=== PATIENT | male | born 1950 | race Caucasian/White ===

== ENCOUNTER 2016-12-12 13:37 | Outpatient (CLI) | payer MEDICARE, MEDICAID | END 2016-12-12 13:38 | disposition critical access hospital (66) | LOC: EMS 13:37 | PROVIDERS: ATTEND Surgery | DX: S01.112A Laceration without foreign body of left eyelid and periocular area, initial encounter (principal); W22.8XXA Striking against or struck by other objects, initial encounter; W19.XXXA Unspecified fall, initial encounter; Y92.039 Unspecified place in apartment as the place of occurrence of the external cause | CPT/HCPCS: A0425; A0429 ==

== ENCOUNTER 2016-12-12 13:59 | Emergency (ER) | payer MEDICARE, MEDICAID ==
[2016-12-12] MEDS ORDERED: BUPIVACAINE 0.5%-EPI 1:200000 PF 10 ML VIAL SUBQ STA (14:16)
[2016-12-12] MEDS ORDERED: BUPIVACAINE 0.5%-EPI 1:200000 PF 30 ML VIAL ONE (14:17)
--- NOTE | 2016-12-12 14:28 | ED Physician Documentation ---
PD HPI HEAD INJURY - Stated complaint Stated Complaint: GLF - Chief complaint Chief Complaint: Laceration - History obtained from History obtained from: Patient, EMS - History of Present Illness Mechanism of head injury: Fell Where head injury occurred: Home Timing - onset: How many hours ago (1) Pain level max: 7 Pain level now: 6 Location of injury: Other (L eyebrow) Associated symptoms: Neck pain, Other (+headache). No: LOC, AMS, Amnesia, Nausea / vomiting, Paresthesias, Seizures, Ear drainage, Nasal drainage Symptoms improve with: Nothing Symptoms worsen with: Other (nothing) Contributing factors: No: Anticoagulated Recently seen: Not recently seen - Additional information Additional information: pt is a hemodialysis pt. Fell getting into his wheelchair. No LOC. Now has headache. No neuro deficits. Pt is chronically hypotensive. Review of Systems Constitutional: denies: Fever, Chills Respiratory: denies: Cough GI: denies: Abdominal Pain, Vomiting Skin: denies: Rash Musculoskeletal: reports: Neck pain (mid c-spine) Neurologic: reports: Head injury. denies: Focal weakness, Numbness PD PAST MEDICAL HISTORY - Past Medical History Past Medical History: Yes Cardiovascular: Atrial fibrillation, Hypertension Respiratory: None Neuro: Peripheral neuropathy Endocrine/Autoimmune: None GI: Pancreatitis, Colon polyps : Renal insuffiency HEENT: None Psych: None Musculoskeletal: Gout Derm: None - Past Surgical History Past Surgical History: No - Present Medications Home Medications: Ambulatory Orders Medication Instructions Recorded Confirmed Metoprolol Succinate 150 mg PO DAILY 05/19/14 09/15/14 Aspirin [Adult Low Dose Aspirin EC] 81 mg PO DAILY 12/12/16 12/12/16 Folic Acid 0 mg PO DAILY 12/12/16 12/12/16 - Allergies Allergies/Adverse Reactions: Allergies Allergy/AdvReac Type Severity Reaction Status Date / Time rosuvastatin calcium * Allergy Unknown Unknown Verified 12/12/16 14:13 [From Crestor] - Social History Does the pt smoke?: No Smoking Status: Former smoker Does the pt drink ETOH?: Yes Does the pt have substance abuse?: No - Immunizations Immunizations are current?: No Immunizations: TDAP >10years/unknown - POLST Patient has POLST: No PD ED PE NORMAL - Vitals Vital signs reviewed: Yes - General General: Alert and oriented X 3, No acute distress - HEENT HEENT: PERRL, EOMI, Ears normal, Moist mucous membranes, Other (3cm, linear, deep laceartion L eyebrow) - Neck Neck: Supple, no meningeal sign, Other (mild mid c-spine TTP. no stepoff or deformity.) - Cardiac Cardiac: RRR - Respiratory Respiratory: No respiratory distress, Clear bilaterally - Abdomen Abdomen: Soft, Non tender - Back Back: No spinal TTP - Derm Derm: Warm and dry - Extremities Extremities: No tenderness to palpate - Neuro Neuro: Alert and oriented X 3 - Psych Psych: Normal mood, Normal affect Results - Vitals Vitals: Vital Signs - 24 hr 12/12/16 12/12/16 14:00 16:53 Temperature 36.3 C L Heart Rate 99 108 H Respiratory 18 16 Rate Blood Pressure 89/61 L 88/60 L O2 Saturation 99 97 Oxygen O2 Source Room air - Rads (name of study) head CT Radiology: Prelim report reviewed, EMP read contemporaneously, See rad report ( Negative head CT for acute findings or significant interval change since 2015) cervical spine cT Radiology: Prelim report reviewed, EMP read contemporaneously, See rad report ( Stable degenerative changes of the cervical spine without superimposed acute findings when compared with 06/12/2016. ) Procedures - Laceration (location) L eyebrow Length in cm: 3 Wound type: Linear, Into subcut fat, Clean Neurovascular status: Sensory intact, Motor intact, Vascular intact Anesthesia: Marcaine 0.5% with epi Wound Preparation: Irrigated copiously NS, Wound explored, To the base. No: FB identified, FB removed Skin layer closure: Nylon, Size #-0 - enter number (4) Other: Patient tolerated well, No complications, Neurovascular intact, Dressing applied, Tetanus UTD Complexity: Simple PD MEDICAL DECISION MAKING - ED course Complexity details: reviewed results, re-evaluated patient, considered differential, d/w patient ED course: Patient is a 66-year-old male who tripped and fell getting into his wheelchair today and sustained a laceration of left eyebrow. This was repaired. Tolerated well. Warnings of infection and instructions on wound care given at bedside. Also counseled on how to minimize scarring. No acute findings on head CT or cervical spine CT. We will have him follow-up with his doctor for suture removal and repeat evaluation. Patient counseled regarding signs and symptoms for which I believe and urgent re-evaluation would be necessary. Patient with good understanding of and agreement to plan and is comfortable going home at this time This document was made in part using voice recognition software. While efforts are made to proofread this document, sound alike and grammatical errors may occur. Patient is chronically hypotensive and this blood pressure is normal for him Departure - Departure Disposition: 01 Home, Self Care Clinical Impression: Facial laceration Qualifiers: Encounter type: initial encounter Qualified Code(s): S01.81XA - Laceration without foreign body of other part of head, initial encounter Condition: Good Instructions: ED Laceration Facial Sutr Tape Follow-Up: Frederic Lane MD [Primary Care Provider] - Within 1 week Comments: Return if you worsen. The stitches should be removed in 7-10 days with your doctor. Discharge Date/Time: 12/12/16 16:53
--- NOTE | 2016-12-12 15:41 | CT Preliminary Report ---
Exam: CT Head W/O IMPRESSION: Negative head CT for acute findings or significant interval change since 06/12/2016. [facility] SITE ID: [id number]
--- NOTE | 2016-12-12 15:44 | CT Report ---
EXAM: CT HEAD EXAM DATE: 12/12/2016 03:28 PM. CLINICAL HISTORY: Fall, head injury. COMPARISON: 06/12/[address] TECHNIQUE: Multiaxial CT images were obtained from the foramen magnum to the vertex. IV contrast: Non e. Reformats: Coronal. In accordance with CT protocol optimization, one or more of the following dose reduction techniques w ere utilized for this exam: automated exposure control, adjustment of mA and/or KV based on patient s ize, or use of iterative reconstructive technique. FINDINGS: Parenchyma: No intraparenchymal hemorrhage. No evidence of mass, midline shift, or CT findings of acu te infarction. Land-white differentiation is distinct. Early periventricular microangiopathic vascula r changes are present. Extraaxial Spaces: Normal for age. No subdural or epidural collections identified. Ventricles: Normal in size and position. Sinuses: Imaged paranasal sinuses, orbits, and mastoids show no significant abnormality. Bones: No evidence of fracture or calvarial defect. Other: None. IMPRESSION: Negative head CT for acute findings or significant interval change since 06/12/2016. [facility] Referring Provider Line: [phone] SITE ID: [id number]
--- NOTE | 2016-12-12 15:49 | CT Preliminary Report ---
Exam: CT Cervical Spine W/O IMPRESSION: Stable degenerative changes of the cervical spine without superimposed acute findings whe n compared with 06/12/2016. [facility] SITE ID: [id number]
--- NOTE | 2016-12-12 15:52 | CT Report ---
EXAM: CT CERVICAL SPINE WITHOUT CONTRAST DATE: 12/12/2016 03:28 PM HISTORY: Fall, neck pain. COMPARISONS: 06/12/2016. TECHNIQUE: Thin-section axial images were acquired of the cervical spine without contrast. Post-proce ssing: Coronal and sagittal reformats. Other: None. In accordance with CT protocol optimization, one or more of the following dose reduction techniques w ere utilized for this exam: automated exposure control, adjustment of mA and/or KV based on patient s ize, or use of iterative reconstructive technique. FINDINGS: Stable height and alignment of the cervical vertebral bodies compared with 06/12/2016. Dege nerative disk space narrowing most marked C5-C6 and C6-C7 with prominent anterior vertebral body spur ring C4-C7, most marked C4-C5 as before. Scattered facet joint degenerative changes with grossly cortes nt neural foramina stable. No acute fracture, acute malalignment or prevertebral soft tissue swelling . A cystic anterior midline mass at the level of the thyroid isthmus measuring 2.5 x 2.2 cm is stable . No significant new findings are seen. IMPRESSION: Stable degenerative changes of the cervical spine without superimposed acute findings whe n compared with 06/12/2016. [facility] Referring Provider Line: [phone] SITE ID: [id number]
[2016-12-12 16:55] VITALS: BP 88/60
== END 2016-12-12 16:53 | disposition home or self-care (01) ==
LOC: EDUNIT# → ED 13:59
DX: S01.112A Laceration without foreign body of left eyelid and periocular area, initial encounter (principal); M54.2 Cervicalgia; R51 Headache; W01.10XA Fall on same level from slipping, tripping and stumbling with subsequent striking against unspecified object, initial encounter; Y93.89 Activity, other specified; Y92.009 Unspecified place in unspecified non-institutional (private) residence as the place of occurrence of the external cause; I95.89 Other hypotension; Z99.2 Dependence on renal dialysis; I10 Essential (primary) hypertension; I48.91 Unspecified atrial fibrillation; Z79.82 Long term (current) use of aspirin; Z87.891 Personal history of nicotine dependence
CPT/HCPCS: 12013; 70450; 72125; 99283

== ENCOUNTER 2016-12-24 11:00 | Outpatient (CLI) | payer MEDICARE, MEDICAID | END 2016-12-24 11:01 | disposition short-term general hospital (02) | LOC: EMS 11:00 | PROVIDERS: ATTEND Surgery | DX: S09.93XA Unspecified injury of face, initial encounter (principal); W17.89XA Other fall from one level to another, initial encounter; Y92.038 Other place in apartment as the place of occurrence of the external cause | CPT/HCPCS: A0425; A0427; A0888 ==

== ENCOUNTER 2017-01-05 18:18 | Outpatient (CLI) | payer MEDICARE, MEDICAID | END 2017-01-05 18:19 | disposition critical access hospital (66) | LOC: EMS 18:18 | PROVIDERS: ATTEND Surgery | DX: R55 Syncope and collapse (principal); R53.1 Weakness; E16.2 Hypoglycemia, unspecified | CPT/HCPCS: A0425; A0429 ==

== ENCOUNTER 2017-01-05 18:38 | Emergency (ER) | payer MEDICARE, MEDICAID ==
[2017-01-05] MEDS ORDERED: SODIUM CHLORIDE 0.9% 500 ML IV ONE (19:06)
[2017-01-05 19:14] LABS: EOSINOPHILS % (AUTO) 1.6 %; HCT - HEMATOCRIT 27.3 % (42.0-52.0); HGB - HEMOGLOBIN 9.3 g/dL (14.0-18.0); LYMPHOCYTES % (AUTO) 19.4 %; MEAN CORPUSCULAR HEMOGLOBIN 35.4 pg (27.0-31.0); MEAN CORPUSCULAR HGB CONC 34.3 g/dL (32.0-36.0); MEAN CORPUSCULAR VOLUME 103.3 fL (80.0-94.0); MEAN PLATELET VOLUME 7.4 fL (7.4-11.4); MONOCYTES % (AUTO) 9.3 %; NEUTROPHILS % (AUTO) 68.7 %; RED BLOOD COUNT 2.64 10^6/uL (4.70-6.10); RED CELL DISTRIBUTION WIDTH 15.3 % (12.0-15.0); UNCORRECTED WHITE BLOOD COUNT 2.6 x10^3/uL; WHITE BLOOD COUNT 2.6 x10^3/uL (4.8-10.8)
[2017-01-05 19:25] LABS: ALBUMIN/GLOBULIN RATIO 0.9 (1.0-2.2); BILIRUBIN,TOTAL 0.7 mg/dL (0.2-1.0); CALCIUM 8.4 mg/dL (8.5-10.3); CREATININE 6.1 mg/dL (0.6-1.2); POTASSIUM 4.2 mmol/L (3.5-5.0); TOTAL PROTEIN 6.9 g/dL (6.7-8.2)
[2017-01-05] MEDS ORDERED: diltiaZEM INJ 5 MG/ML VIAL IVP STA (19:40)
--- NOTE | 2017-01-05 19:44 | ED Physician Documentation ---
PD HPI SYNCOPE - Stated complaint Stated Complaint: SYNCOPE - Chief complaint Chief Complaint: General - History obtained from History obtained from: Patient, EMS - History of Present Illness Witnessed: Witnessed Timing - onset: Today Duration: Minutes (1) Preceding symptoms: None Associated symptoms: No: Seizure, Incontinant of urine, Incontinant of stool, Headache, Chest pain, Palpitations, Diaphoresis, Dyspnea, Nausea / vomiting, Abdominal pain Injury occurred: No: Fell, Head injury, Neck injury, Bit tongue Pain level max: 0 Pain level now: 0 Similar symptoms before: Diagnosis (syncope) - Additional information Additional information: was having dialysis when he had a syncopal event. Review of Systems Constitutional: denies: Fever, Chills Ears: denies: Ear pain Nose: denies: Rhinorrhea / runny nose, Congestion Throat: denies: Sore throat Cardiac: denies: Chest pain / pressure Respiratory: denies: Cough GI: denies: Abdominal Pain, Nausea, Vomiting, Diarrhea : denies: Dysuria Skin: denies: Rash Musculoskeletal: denies: Neck pain, Back pain Neurologic: denies: Focal weakness, Numbness, Seizure, Confused, Altered mental status, Headache PD PAST MEDICAL HISTORY - Past Medical History Past Medical History: Yes Cardiovascular: Atrial fibrillation, Hypertension Respiratory: None Neuro: Peripheral neuropathy Endocrine/Autoimmune: None GI: Pancreatitis, Colon polyps : Renal insuffiency HEENT: None Psych: None Musculoskeletal: Gout Derm: None Other Past Medical History: dialysis - Past Surgical History Past Surgical History: No - Present Medications Home Medications: Ambulatory Orders Medication Instructions Recorded Confirmed Metoprolol Succinate 150 mg PO DAILY 05/19/14 09/15/14 Aspirin [Adult Low Dose Aspirin EC] 81 mg PO DAILY 12/12/16 12/12/16 Folic Acid 0 mg PO DAILY 12/12/16 12/12/16 - Allergies Allergies/Adverse Reactions: Allergies Allergy/AdvReac Type Severity Reaction Status Date / Time rosuvastatin calcium * Allergy Unknown Unknown Verified 12/12/16 14:13 [From Anita] - Social History Does the pt smoke?: No Smoking Status: Former smoker Does the pt drink ETOH?: Yes Does the pt have substance abuse?: No - Immunizations Immunizations are current?: No Immunizations: TDAP >10years/unknown - POLST Patient has POLST: No PD ED PE NORMAL - Vitals Vital signs reviewed: Yes - General General: Alert and oriented X 3, No acute distress, Well developed/nourished - HEENT HEENT: Atraumatic, PERRL, Moist mucous membranes - Neck Neck: Supple, no meningeal sign, No bony TTP - Cardiac Cardiac: Strong equal pulses, Other (irregular tachycardia) - Respiratory Respiratory: No respiratory distress, Clear bilaterally - Abdomen Abdomen: Soft, Non tender - Back Back: No spinal TTP - Derm Derm: Warm and dry, No rash - Extremities Extremities: No edema, No calf tenderness / cord - Neuro Neuro: Alert and oriented X 3 - Psych Psych: Normal mood, Normal affect Results - Vitals Vitals: Oxygen O2 Source Room air - EKG (time done) 1920 Rate: Rate (enter#) (132) Rhythm: Atrial fibrillation [place]: Normal Ischemia: Normal ST segments - Labs Labs: Laboratory Tests 01/05/17 01/05/17 01/05/17 18:54 18:54 18:54 WBC 2.6 L RBC 2.64 L Hgb 9.3 L Hct 27.3 L MCV 103.3 H MCH 35.4 H MCHC 34.3 RDW 15.3 H Plt Count 173 MPV 7.4 Neut # Not Reportable Lymph # Not Reportable [place] # Not Reportable Eos # Not Reportable Baso # Not Reportable Absolute Nucleated RBC Not Reportable Total Counted 100 Band Neuts % (Manual) 5 Neutrophils # (Manual) 1.8 Lymphocytes # (Manual) 0.6 L Monocytes # (Manual) 0.2 Eosinophils # (Manual) 0.0 Nucleated RBCs Not Reportable Differential Comment MANUAL DIFFERENTIAL Platelet Estimate NORMAL (130-450,000) Platelet Morphology NORMAL APPEARANCE RBC Morph Micro Appear NORMAL APPEARANCE Sodium 137 Potassium 4.2 Chloride 92 L Carbon Dioxide 30 Anion Gap 15.0 H BUN 38 H Creatinine 6.1 H Estimated GFR (MDRD) 9 L Glucose 77 POC Whole Bld Glucose Calcium 8.4 L Total Bilirubin 0.7 AST 14 ALT 12 Alkaline Phosphatase 86 Total Protein 6.9 Albumin 3.2 Globulin 3.7 Albumin/Globulin Ratio 0.9 L Lipase 14 L Ethyl Alcohol 27.5 01/05/17 01/05/17 19:05 19:53 WBC RBC Hgb Hct MCV MCH MCHC RDW Plt Count MPV Neut # Lymph # [place] # Eos # Baso # Absolute Nucleated RBC Total Counted Band Neuts % (Manual) Neutrophils # (Manual) Lymphocytes # (Manual) Monocytes # (Manual) Eosinophils # (Manual) Nucleated RBCs Differential Comment Platelet Estimate Platelet Morphology RBC Morph Micro Appear Sodium Potassium Chloride Carbon Dioxide Anion Gap BUN Creatinine Estimated GFR (MDRD) Glucose POC Whole Bld Glucose 76 77 Calcium Total Bilirubin AST ALT Alkaline Phosphatase Total Protein Albumin Globulin Albumin/Globulin Ratio Lipase Ethyl Alcohol PD MEDICAL DECISION MAKING - ED course Complexity details: reviewed old records, reviewed results, re-evaluated patient , considered differential, d/w patient ED course: Patient is a 66-year-old male who is on dialysis. Had a syncopal event during dialysis today. This is not too unusual for him. Has been seen here previously for similar. He was found to be in atrial fibrillation with rapid ventricular response. He did not take any of his medications today. Given his normal medications here and his heart rate decreased to approximately 99-105. He states his normal heart rate is about 110-120. He was in atrial fibrillation still. No focal neurological deficits. No acute laboratory issues. He does not want to be observed in the hospital. Patient counseled regarding signs and symptoms for which I believe and urgent re-evaluation would be necessary. Patient with good understanding of and agreement to plan and is comfortable going home at this time This document was made in part using voice recognition software. While efforts are made to proofread this document, sound alike and grammatical errors may occur. Departure - Departure Disposition: 01 Home, Self Care Clinical Impression: Atrial fibrillation with RVR Syncope Qualifiers: Syncope type: unspecified Qualified Code(s): R55 - Syncope and collapse Condition: Good Instructions: ED Afib, ED Fainting Unkn Cause Follow-Up: your,doctor in 3 days [Other] Comments: Return if you worsen. You need to take your medications at home as prescribed. Discharge Date/Time: 01/05/17 23:20
[2017-01-05] MEDS ORDERED: diltiaZEM INJ 5 MG/ML VIAL ONE (19:57)
[2017-01-05 20:18] LABS: BAND NEUTROPHILS % (MANUAL) 5 %; EOSINOPHILS % (MANUAL) 1 %; LYMPHOCYTES % (MANUAL) 23 %; NEUTROPHILS % (MANUAL) 64 %; TOTAL CELLS COUNTED 100
[2017-01-05 20:19] LABS: NP AUTO DIFFERENTIAL? YES; NP MAN DIFFERENTIAL? NO; PLATELET ESTIMATE, MANUAL NORMAL (130-450,000) (NORMAL); PLATELET MORPHOLOGY NORMAL APPEARANCE (NORMAL)
[2017-01-05] MEDS ORDERED: METOPROLOL TARTRATE 50 MG TABLET PO STA (20:49)
[2017-01-05] MEDS ORDERED: METOPROLOL 5 MG/5 ML VIAL IVP STA ×3 (20:49→22:35)
[2017-01-05] MEDS ORDERED: METOPROLOL TARTRATE 50 MG TABLET ONE (20:54)
[2017-01-05] MEDS ORDERED: METOPROLOL 5 MG/5 ML VIAL IVP ONE ×3 (20:54→22:41)
[2017-01-05 23:15] VITALS: BP 110/73
== END 2017-01-05 23:20 | disposition home or self-care (01) ==
LOC: EDUNIT# → EDSEX → ED 18:38
DX: I48.91 Unspecified atrial fibrillation (principal); R55 Syncope and collapse; I45.81 Long QT syndrome; I10 Essential (primary) hypertension; N28.9 Disorder of kidney and ureter, unspecified; G62.9 Polyneuropathy, unspecified; Z99.2 Dependence on renal dialysis; Z79.82 Long term (current) use of aspirin; Z87.891 Personal history of nicotine dependence
CPT/HCPCS: 36415; 80053; 83690; 85025; 93005; 96374; 96375; 96376; 99285; A9270; G0480; 80320

== ENCOUNTER 2017-01-14 13:29 | Outpatient (CLI) | payer MEDICARE, MEDICAID | END 2017-01-14 13:30 | disposition short-term general hospital (02) | DX: R46.4 Slowness and poor responsiveness (principal); R47.81 Slurred speech; M25.561 Pain in right knee; R03.1 Nonspecific low blood-pressure reading; W05.0XXA Fall from non-moving wheelchair, initial encounter | CPT/HCPCS: A0425; A0427 ==

== ENCOUNTER 2017-07-22 15:34 | Outpatient (CLI) | payer MEDICARE, MEDICAID | END 2017-07-22 15:35 | disposition critical access hospital (66) | LOC: EMS 15:34 | PROVIDERS: ATTEND Surgery | DX: R56.9 Unspecified convulsions (principal) | CPT/HCPCS: A0425; A0429 ==

== ENCOUNTER 2017-07-22 15:56 | Emergency (ER) | payer MEDICARE, MEDICAID ==
[2017-07-22 16:33] LABS: BASOPHILS % (AUTO) 0.8 %; EOSINOPHILS # (AUTO) 0.1 10^3/uL (0.0-0.7); EOSINOPHILS % (AUTO) 2.2 %; LYMPHOCYTES # (AUTO) 0.4 10^3/uL (1.5-3.5); LYMPHOCYTES % (AUTO) 9.8 %; MEAN CORPUSCULAR HEMOGLOBIN 31.5 pg (27.0-31.0); MEAN CORPUSCULAR HGB CONC 32.4 g/dL (32.0-36.0); MEAN CORPUSCULAR VOLUME 97.4 fL (80.0-94.0); MEAN PLATELET VOLUME 6.3 fL (7.4-11.4); MONOCYTES # (AUTO) 0.5 10^3/uL (0.0-1.0); MONOCYTES % (AUTO) 10.8 %; NEUTROPHILS # (AUTO) 3.3 10^3/uL (1.5-6.6); NEUTROPHILS % (AUTO) 76.4 %; PLT - PLATELET COUNT 246 10^3/uL (130-450); RED BLOOD COUNT 3.17 10^6/uL (4.70-6.10); RED CELL DISTRIBUTION WIDTH 16.3 % (12.0-15.0); WHITE BLOOD COUNT 4.3 x10^3/uL (4.8-10.8)
--- NOTE | 2017-07-22 16:37 | ED Physician Documentation ---
PD HPI SEIZURE - Stated complaint Stated Complaint: SZ - Chief complaint Chief Complaint: Neuro - History obtained from History obtained from: Patient, EMS - History of Present Illness Timing - onset: Today Witnessed: Witnessed Number of seizures: Single, Lasted minutes (1) Description of seizure activity: Generalized, Tonic Injury during seizure: Head injury, Neck injury (states head and neck pain, no fall). No: Fell, Bit tongue, Shoulder dislocation Pain level max: 4 Pain level now: 4 Associated symptoms: Headache History of seizures: First seizure Contributing factors: Other (during dialysis today. States passes out regularly , but has never had seizures. States hit his head 2 weeks ago when he fell at home) Similar symptoms before: Has not had sx before Recently seen: Not recently seen Review of Systems Ten Systems: 10 systems reviewed and negative Constitutional: denies: Fever, Chills Ears: denies: Ear pain Nose: denies: Rhinorrhea / runny nose, Congestion Throat: denies: Sore throat Cardiac: denies: Chest pain / pressure Respiratory: denies: Cough GI: denies: Abdominal Pain, Nausea, Vomiting, Diarrhea Skin: denies: Rash Musculoskeletal: denies: Back pain Neurologic: denies: Focal weakness, Numbness, Confused, Altered mental status PD PAST MEDICAL HISTORY - Past Medical History Cardiovascular: Atrial fibrillation, Hypertension Respiratory: None Neuro: Peripheral neuropathy Endocrine/Autoimmune: None GI: Pancreatitis, Colon polyps : Renal insuffiency HEENT: None Psych: None Musculoskeletal: Gout Derm: None - Past Surgical History Past Surgical History: No - Present Medications Home Medications: Ambulatory Orders Medication Instructions Recorded Confirmed Metoprolol Succinate 150 mg PO DAILY 05/19/14 07/22/17 - Allergies Allergies/Adverse Reactions: Allergies Allergy/AdvReac Type Severity Reaction Status Date / Time rosuvastatin calcium * Allergy Unknown Unknown Verified 07/22/17 16:03 [From Crestor] enoxaparin [From Lovenox] Allergy Unknown Verified 07/22/17 16:05 - Social History Does the pt smoke?: No Smoking Status: Never smoker Does the pt drink ETOH?: Yes Does the pt have substance abuse?: No - Immunizations Immunizations are current?: No Immunizations: TDAP >10years/unknown - POLST Patient has POLST: No PD ED PE NORMAL - Vitals Vital signs reviewed: Yes - General General: Alert and oriented X 3, No acute distress, Well developed/nourished - HEENT HEENT: Atraumatic, PERRL, EOMI, Ears normal, Moist mucous membranes - Neck Neck: Supple, no meningeal sign, Other (mild mid c-spine TTP) - Cardiac Cardiac: RRR, Strong equal pulses - Respiratory Respiratory: No respiratory distress, Clear bilaterally - Abdomen Abdomen: Soft, Non tender, Non distended - Back Back: No spinal TTP - Derm Derm: Warm and dry - Extremities Extremities: No deformity, Normal ROM s pain - Neuro Neuro: Alert and oriented X 3, fire adjuster 2-12 intact, No motor deficit, No sensory deficit, Normal speech - Psych Psych: Normal mood, Normal affect Results - Vitals Vitals: Vital Signs - 24 hr 07/22/17 07/22/17 15:59 19:23 Temperature 36.5 C Heart Rate 99 109 H Respiratory 16 18 Rate Blood Pressure 127/73 128/75 O2 Saturation 99 96 Oxygen O2 Source Room air - EKG (time done) 1648 Rate: Rate (enter#) (103) Rhythm: Atrial fibrillation [place]: Normal QRS: Normal Ischemia: Normal ST segments - Labs Labs: Laboratory Tests 07/22/17 07/22/17 16:27 16:27 WBC 4.3 L RBC 3.17 L Hgb 10.0 L Hct 30.9 L MCV 97.4 H MCH 31.5 H MCHC 32.4 RDW 16.3 H Plt Count 246 MPV 6.3 L Neut # 3.3 Lymph # 0.4 L [place] # 0.5 Eos # 0.1 Baso # 0.0 Absolute Nucleated RBC 0.00 Nucleated RBC % 0.1 Sodium 136 Potassium 3.5 Chloride 93 L Carbon Dioxide 24 Anion Gap 19.0 H BUN 19 Creatinine 4.2 H Estimated GFR (MDRD) 14 L Glucose 111 H Calcium 9.5 Total Bilirubin 0.5 AST 14 ALT 10 Alkaline Phosphatase 112 Total Protein 8.3 H Albumin 3.5 Globulin 4.8 H Albumin/Globulin Ratio 0.7 L Lipase 21 L Salicylates < 6.0 Acetaminophen < 10 L Ethyl Alcohol < 5.0 - Rads (name of study) CT head Radiology: Prelim report reviewed, EMP read contemporaneously, See rad report ( Generalized age-related cortical atrophic changes without evidence of acute intracranial abnormality) CT c-spine Radiology: Prelim report reviewed, EMP read contemporaneously, See rad report ( Acute hairline fracture involving the base of the left C6 inferior articulating facet. Extensive diffuse idiopathic skeletal hyperostosis with ankylosis throughout the majority anterior bony column of the cervical spine. Synovitis left C3-C4 facet. ) PD MEDICAL DECISION MAKING - ED course Complexity details: reviewed results, re-evaluated patient, considered differential, d/w patient, d/w business solutions consultant (Dr. Godwin ([facility] [place] [facility] ED course: Patient is a 66-year-old male who presents to the emergency department what sounds like an new onset of a seizure today, has never had seizures in the past. No acute findings on laboratory testing, head CT. Cervical spine CT shows a hairline fracture of the C6 facet. Discussed the case with [facility] spine who also reviewed the images and states that this does not require any treatment. He states the patient can wear a collar if the patient likes but does not need to as this will heal on its own. Patient does not want a collar. Patient will follow up with his doctor for further evaluation and care. He does not drive. Patient counseled regarding signs and symptoms for which I believe and urgent re-evaluation would be necessary. Patient with good understanding of and agreement to plan and is comfortable going home at this time This document was made in part using voice recognition software. While efforts are made to proofread this document, sound alike and grammatical errors may occur. Departure - Departure Disposition: 01 Home, Self Care Clinical Impression: Seizure Fx C6 vertebra-closed Qualifiers: Encounter type: initial encounter Fracture morphology: other fracture Fracture alignment: nondisplaced Qualified Code(s): S12.591A - Other nondisplaced fracture of sixth cervical vertebra, initial encounter for closed fracture Condition: Good Instructions: ED Fx Comp Vertebral Follow-Up: Frederic Lane MD [Primary Care Provider] - Within 1 week Comments: Return if you worsen. Follow up with your doctor. This fracture is stable and will heal on it's own. Discharge Date/Time: 07/22/17 19:45
[2017-07-22 16:47] LABS: ALBUMIN 3.5 g/dL (3.2-5.5); ALBUMIN/GLOBULIN RATIO 0.7 (1.0-2.2); ALKALINE PHOSPHATASE 112 IU/L (42-121); ALT ALANINE AMINOTRANSFERASE 10 IU/L (10-60); AST ASPARTATE AMINOTRANSFERASE 14 IU/L (10-42); BILIRUBIN,TOTAL 0.5 mg/dL (0.2-1.0); BUN - BLOOD UREA NITROGEN 19 mg/dL (6-20); CALCIUM 9.5 mg/dL (8.5-10.3); CARBON DIOXIDE - CO2 24 mmol/L (21-32); CHLORIDE 93 mmol/L (101-111); CREATININE 4.2 mg/dL (0.6-1.2); GFR - MDRD 14 (>89); GLUCOSE 111 mg/dL (70-100); LIPASE 21 U/L (22-51); SALICYLATE < 6.0 mg/dL; SODIUM 136 mmol/L (135-145); TOTAL PROTEIN 8.3 g/dL (6.7-8.2)
[2017-07-22 16:48] LABS: ACETAMINOPHEN < 10 ug/mL (10-30)
--- NOTE | 2017-07-22 17:15 | CT Preliminary Report ---
Exam: CT HEAD W/O IMPRESSION: Generalized age-related cortical atrophic changes without evidence of acute intracranial abnormality. [facility] SITE ID: [id number]
--- NOTE | 2017-07-22 17:28 | CT Preliminary Report ---
Exam: CT CERVICAL SPINE W/O IMPRESSION: 1. Acute hairline fracture involving the base of the left C6 inferior articular facet. 2. Extensive diffuse idiopathic skeletal hyperostosis with ankylosis throughout the majority of the c ervical spine. 3. Synovitis left C3-C4 facet. [facility] The above critical findings were discussed with Dr Tomlin by Dr. Judy Mtz at 17:27 hrs on 04/29. SITE ID: [id number]
--- NOTE | 2017-07-22 17:30 | CT Report ---
EXAM: CT HEAD EXAM DATE: 07/22/2017 04:39 PM. CLINICAL HISTORY: Seizure during dialysis. Patient presents with headache and neck pain since then. COMPARISON: Head CT 12/12/2016. Head MRI 01/18/2013. TECHNIQUE: Multiaxial CT images were obtained from the foramen magnum to the vertex. Reformats: Coron al. IV contrast: None. In accordance with CT protocol optimization, one or more of the following dose reduction techniques w ere utilized for this exam: automated exposure control, adjustment of mA and/or KV based on patient s ize, or use of iterative reconstructive technique. FINDINGS: Parenchyma: No intraparenchymal hemorrhage. No evidence of mass, midline shift, or CT findings of acu te infarction. Land-white differentiation is distinct. Diffuse chronic microangiopathic white matter changes are evident. Extraaxial Spaces: Normal for age. No subdural or epidural collections identified. Ventricles: The ventricles and cortical sulci are enlarged, consistent with age-related tissue loss. Sinuses and orbits: Imaged paranasal sinuses, orbits, and mastoids show no significant abnormality. Bones: No evidence of fracture or calvarial defect. Other: None. IMPRESSION: Generalized age-related cortical atrophic changes without evidence of acute intracranial abnormality. [facility] Referring Provider Line: [phone] SITE ID: [id number]
--- NOTE | 2017-07-22 17:37 | CT Report ---
EXAM: CT CERVICAL SPINE WITHOUT CONTRAST DATE: 07/22/2017 05:05 PM. HISTORY: Seizure during dialysis. Subsequent neck pain and headache. COMPARISONS: 12/12/2016. TECHNIQUE: Thin-section axial images were acquired of the cervical spine without contrast. Post-proce ssing: Coronal and sagittal reformats. Other: None. In accordance with CT protocol optimization, one or more of the following dose reduction techniques w ere utilized for this exam: automated exposure control, adjustment of mA and/or KV based on patient s ize, or use of iterative reconstructive technique. FINDINGS: Alignment: No scoliosis or spondylolisthesis. Bones: New hairline fracture extending through the left C6 inferior articulating facet from the base to the inferior most aspect, axial image 50, sagittal image 27. The rest of the trabecular and cortical patterns are intact. Old mild anterior wedging C7 and T1. Interspace Levels/Facets: Fusion of the right C3-C4 facet. Erosive changes left C3-C4 facet. Extensive diffuse idiopathic skeletal hyperostosis such that there is essentially ankylosis primarily involving the anterior bony column from C3 to T1. Multilevel moderate and marked degenerative changes. No central spinal canal compromise. Multilevel marked bony neural foraminal compromise. Musculature: Normal. No fatty atrophy. Other: The paravertebral and prevertebral soft tissues are unremarkable. The lung apices are clear. IMPRESSION: 1. Acute hairline fracture involving the base of the left C6 inferior articulating facet. 2. Extensive diffuse idiopathic skeletal hyperostosis with ankylosis throughout the majority anterior bony column of the cervical spine. 3. Synovitis left C3-C4 facet. RADIA The above critical findings were discussed with Dr Tomlin by Dr. Judy Mtz at 17:27 hrs on 04/29. Referring Provider Line: [phone] SITE ID: [id number]
[2017-07-22 19:23] VITALS: BP 128/75
== END 2017-07-22 19:45 | disposition home or self-care (01) ==
LOC: EDUNIT# → ED 15:56
DX: R56.9 Unspecified convulsions (principal); S12.591A Other nondisplaced fracture of sixth cervical vertebra, initial encounter for closed fracture; X58.XXXA Exposure to other specified factors, initial encounter; I48.91 Unspecified atrial fibrillation; I10 Essential (primary) hypertension; Z99.2 Dependence on renal dialysis
CPT/HCPCS: 36415; 70450; 72125; 80053; 80307; 83690; 85025; 93005; 99283; 99284; G0480; 80320; 80329

== ENCOUNTER 2017-10-26 12:49 | Outpatient (CLI) | payer MEDICARE, MEDICAID | END 2017-10-26 12:50 | disposition short-term general hospital (02) | LOC: EMS 12:49 | PROVIDERS: ATTEND Surgery | DX: S01.111A Laceration without foreign body of right eyelid and periocular area, initial encounter (principal); M54.9 Dorsalgia, unspecified; W18.30XA Fall on same level, unspecified, initial encounter; Y92.039 Unspecified place in apartment as the place of occurrence of the external cause | CPT/HCPCS: A0425; A0429 ==

== ENCOUNTER 2018-01-11 11:21 | Outpatient (CLI) | payer MEDICARE, MEDICAID | END 2018-01-11 11:22 | disposition short-term general hospital (02) | LOC: EMS 11:21 | PROVIDERS: ATTEND Surgery | DX: M54.2 Cervicalgia (principal); S00.81XA Abrasion of other part of head, initial encounter; R53.1 Weakness; W18.30XA Fall on same level, unspecified, initial encounter; Y92.039 Unspecified place in apartment as the place of occurrence of the external cause; Z99.2 Dependence on renal dialysis | CPT/HCPCS: A0425; A0429 ==

== ENCOUNTER 2018-02-08 17:12 | Outpatient (CLI) | payer MEDICARE, MEDICAID | END 2018-02-08 17:13 | disposition critical access hospital (66) | LOC: EMS 17:12 | PROVIDERS: ATTEND Surgery | DX: R11.0 Nausea (principal); R53.1 Weakness; H53.8 Other visual disturbances | CPT/HCPCS: A0425; A0429 ==

== ENCOUNTER 2018-02-08 17:34 | Emergency (ER) | payer MEDICARE, MEDICAID ==
[2018-02-08] MEDS ORDERED: SODIUM CHLORIDE 0.9% 500 ML IV ONE (18:02)
[2018-02-08 18:37] LABS: BASOPHILS # (AUTO) 0.1 10^3/uL (0.0-0.1); BASOPHILS % (AUTO) 1.2 %; EOSINOPHILS % (AUTO) 0.7 %; HGB - HEMOGLOBIN 10.4 g/dL (14.0-18.0); LYMPHOCYTES # (AUTO) 0.4 10^3/uL (1.5-3.5); LYMPHOCYTES % (AUTO) 9.6 %; MEAN CORPUSCULAR HGB CONC 33.2 g/dL (32.0-36.0); MEAN CORPUSCULAR VOLUME 102.2 fL (80.0-94.0); MEAN PLATELET VOLUME 6.2 fL (7.4-11.4); MONOCYTES # (AUTO) 0.4 10^3/uL (0.0-1.0); MONOCYTES % (AUTO) 9.4 %; NEUTROPHILS # (AUTO) 3.3 10^3/uL (1.5-6.6); NEUTROPHILS % (AUTO) 79.1 %; PLT - PLATELET COUNT 155 10^3/uL (130-450); RED BLOOD COUNT 3.07 10^6/uL (4.70-6.10); RED CELL DISTRIBUTION WIDTH 16.8 % (12.0-15.0); WHITE BLOOD COUNT 4.2 x10^3/uL (4.8-10.8)
[2018-02-08 18:51] LABS: ALBUMIN 3.2 g/dL (3.2-5.5); ALBUMIN/GLOBULIN RATIO 0.7 (1.0-2.2); BILIRUBIN,TOTAL 0.7 mg/dL (0.2-1.0); CALCIUM 8.8 mg/dL (8.5-10.3); CREATININE 4.1 mg/dL (0.6-1.2); TOTAL PROTEIN 8.1 g/dL (6.7-8.2)
[2018-02-08] MEDS ORDERED: METOPROLOL SUCCINATE 50 MG TABLET PO STA (19:12)
[2018-02-08] MEDS ORDERED: METOPROLOL 5 MG/5 ML VIAL IVP STA ×3 (19:12→19:47)
--- NOTE | 2018-02-08 19:16 | ED Physician Documentation ---
History of Present Illness - Stated complaint Stated Complaint: shaky - Chief complaint Chief Complaint: General - History obtained from History obtained from: Patient, EMS - History of Present Illness Timing: Today Pain level max: 0 Pain level now: 0 Improved by: nothing Worsened by: nothing - Additonal information Additional information: Patient states that he was at dialysis today and after dialysis he felt very shaky and generally unwell. Has a history of atrial fibrillation and has not taken his metoprolol yet today. Blood sugar was normal with EMS. Denies any chest pain or shortness of breath. Review of Systems Ten Systems: 10 systems reviewed and negative Constitutional: denies: Fever, Chills Ears: denies: Ear pain Nose: denies: Rhinorrhea / runny nose, Congestion Throat: denies: Sore throat Cardiac: denies: Chest pain / pressure Respiratory: denies: Cough GI: denies: Nausea, Vomiting, Diarrhea Skin: denies: Rash Musculoskeletal: denies: Neck pain, Back pain Neurologic: denies: Focal weakness, Numbness, Headache PD PAST MEDICAL HISTORY - Past Medical History Past Medical History: Yes Cardiovascular: Atrial fibrillation, Hypertension Respiratory: None Endocrine/Autoimmune: None GI: Pancreatitis, Colon polyps : Renal insuffiency HEENT: None Psych: None Musculoskeletal: Gout Derm: None - Past Surgical History Past Surgical History: No - Present Medications Home Medications: Ambulatory Orders Medication Instructions Recorded Confirmed Metoprolol Succinate 150 mg PO DAILY 05/19/14 07/22/17 Darbepoetin [Aranesp] 100 mcg SUBQ ONCE 02/08/18 02/08/18 Digoxin 125 mcg PO 02/08/18 Folic Acid/Vit Bcomp,C [[place]-Dmitry 0.8 mg PO 02/08/18 Tablet] Omeprazole [PriLOSEC] 20 mg PO DAILY 02/08/18 02/08/18 Paricalcitol [Zemplar] 2 mcg PO 02/08/18 - Allergies Allergies/Adverse Reactions: Allergies Allergy/AdvReac Type Severity Reaction Status Date / Time rosuvastatin calcium * Allergy Unknown Unknown Verified 02/08/18 17:48 [From Crestor] enoxaparin [From Lovenox] Allergy Unknown Verified 02/08/18 17:48 - Social History Does the pt smoke?: No Smoking Status: Never smoker Does the pt drink ETOH?: Yes Does the pt have substance abuse?: No - Immunizations Immunizations are current?: No Immunizations: TDAP >10years/unknown - POLST Patient has POLST: No PD ED PE NORMAL - Vitals Vital signs reviewed: Yes - General General: Alert and oriented X 3, No acute distress - HEENT HEENT: Moist mucous membranes - Neck Neck: Supple, no meningeal sign - Cardiac Cardiac: Other (tachycardic) - Respiratory Respiratory: No respiratory distress, Clear bilaterally - Abdomen Abdomen: Soft, Non tender, Non distended - Derm Derm: Warm and dry - Extremities Extremities: No edema, No calf tenderness / cord - Neuro Neuro: Alert and oriented X 3 - Psych Psych: Normal mood, Normal affect Results - Vitals Vitals: Vital Signs - 24 hr 02/08/18 02/08/18 02/08/18 17:42 18:49 19:34 Temperature 36.6 C Heart Rate 145 H 119 H 132 H Respiratory 20 22 20 Rate Blood Pressure 135/76 H 147/91 H 146/88 H O2 Saturation 97 100 99 02/08/18 02/08/18 02/08/18 19:40 19:53 20:59 Temperature Heart Rate 131 H 119 H 126 H Respiratory 20 20 18 Rate Blood Pressure 136/89 H 131/94 H 132/85 H O2 Saturation 99 98 99 02/08/18 02/08/18 02/08/18 21:26 22:29 22:43 Temperature 36.6 C Heart Rate 113 H 116 H 109 H Respiratory 18 18 18 Rate Blood Pressure 126/79 134/88 H 135/85 H O2 Saturation 100 99 98 02/09/18 00:07 Temperature Heart Rate 117 H Respiratory 18 Rate Blood Pressure 138/84 H O2 Saturation 99 Oxygen O2 Source Room air - EKG (time done) 1745 Rate: Rate (enter#) (137) Rhythm: Atrial fibrillation (w RVR) [place]: Normal QRS: Normal Ischemia: Non specific changes - Labs Labs: Laboratory Tests 02/08/18 02/08/18 18:20 18:20 WBC 4.2 L RBC 3.07 L Hgb 10.4 L Hct 31.4 L MCV 102.2 H MCH 34.0 H MCHC 33.2 RDW 16.8 H Plt Count 155 MPV 6.2 L Neut # (Auto) 3.3 Lymph # (Auto) 0.4 L [place] # (Auto) 0.4 Eos # (Auto) 0.0 Baso # (Auto) 0.1 Absolute Nucleated RBC 0.00 Nucleated RBC % 0.0 Sodium 133 L Potassium 3.8 Chloride 94 L Carbon Dioxide 28 Anion Gap 11.0 BUN 9 Creatinine 4.1 H Estimated GFR (MDRD) 15 L Glucose 105 H Calcium 8.8 Total Bilirubin 0.7 AST 21 ALT 16 Alkaline Phosphatase 138 H Total Protein 8.1 Albumin 3.2 Globulin 4.8 H Albumin/Globulin Ratio 0.7 L Lipase 29 PD MEDICAL DECISION MAKING - ED course Complexity details: reviewed old records, reviewed results, re-evaluated patient , considered differential, d/w patient, d/w cosmetic sales consultant ED course: Patient is a 67-year-old male who is on hemodialysis, has a history of atrial fibrillation. Started feeling shaky and tachycardic after dialysis today. EMS was called and they brought him here. Found to be in atrial fibrillation with rapid ventricular response. He has not taken his metoprolol yet, therefore this was given to him. He was also given IV metoprolol, but his rate remained elevated. Then given IV diltiazem. Rate continued to be elevated and was started on the diltiazem drip. Discussed case with Dr. Tomlin, hospitalist here who is uncomfortable keep in a dialysis patient in the hospital here. Therefore will try to transfer to [facility] where his senior electrical estimator Dr. Wu practices. D/w Dr. Zhao (nephrology) at [phone] and agrees with transfer. D/w Dr. Mahoney who graciously accepts at [phone]. Dilt drip at 10 and HR 90's to low 100's. Patient transferred to [facility] This document was made in part using voice recognition software. While efforts are made to proofread this document, sound alike and grammatical errors may occur. - Sepsis Event Vital Signs: Vital Signs - 24 hr 02/08/18 02/08/18 02/08/18 17:42 18:49 19:34 Temperature 36.6 C Heart Rate 145 H 119 H 132 H Respiratory 20 22 20 Rate Blood Pressure 135/76 H 147/91 H 146/88 H O2 Saturation 97 100 99 02/08/18 02/08/18 02/08/18 19:40 19:53 20:59 Temperature Heart Rate 131 H 119 H 126 H Respiratory 20 20 18 Rate Blood Pressure 136/89 H 131/94 H 132/85 H O2 Saturation 99 98 99 02/08/18 02/08/18 02/08/18 21:26 22:29 22:43 Temperature 36.6 C Heart Rate 113 H 116 H 109 H Respiratory 18 18 18 Rate Blood Pressure 126/79 134/88 H 135/85 H O2 Saturation 100 99 98 02/09/18 00:07 Temperature Heart Rate 117 H Respiratory 18 Rate Blood Pressure 138/84 H O2 Saturation 99 Oxygen O2 Source Room air Departure - Departure Disposition: 02 Transfer Acute Care Hosp Clinical Impression: Atrial fibrillation with RVR Condition: Stable
[2018-02-08] MEDS ORDERED: LORazepam 2 MG/ML VIAL IVP STA (20:11)
[2018-02-08] MEDS ORDERED: diltiaZEM INJ 5 MG/ML VIAL IVP STA ×2 (20:51→21:24)
[2018-02-08] MEDS ORDERED: diltiaZEM INJ 125 MG in DEXTROSE 5% 100 ML IV STA (22:20)
[2018-02-08] MEDS ORDERED: diltiaZEM INJ 5 MG/ML VIAL ONE (22:43)
[2018-02-09] MEDS ORDERED: ONDANSETRON ODT 4 MG TABLET TL STA (02:44)
[2018-02-09 06:30] VITALS: BP 120/75
== END 2018-02-09 06:30 | disposition short-term general hospital (02) ==
LOC: EDUNIT# → ED 17:34
DX: I48.91 Unspecified atrial fibrillation (principal); I12.9 Hypertensive chronic kidney disease with stage 1 through stage 4 chronic kidney disease, or unspecified chronic kidney disease; N18.9 Chronic kidney disease, unspecified; Z99.2 Dependence on renal dialysis; M10.9 Gout, unspecified; Z86.010 Personal history of colon polyps
CPT/HCPCS: 36415; 80053; 83690; 85025; 93005; 96361; 96365; 96375; 96376; 99285; A9270; J2060; Q0162

== ENCOUNTER 2018-02-09 06:36 | Outpatient (CLI) | payer MEDICARE, MEDICAID | END 2018-02-09 06:37 | disposition short-term general hospital (02) | LOC: EMS 06:36 | PROVIDERS: ATTEND Surgery | DX: I48.91 Unspecified atrial fibrillation (principal); Z99.2 Dependence on renal dialysis | CPT/HCPCS: A0425; A0426 ==

== ENCOUNTER 2018-02-22 16:42 | Outpatient (CLI) | payer MEDICARE, MEDICAID | END 2018-02-22 16:43 | disposition critical access hospital (66) | LOC: EMS 16:42 | PROVIDERS: ATTEND Surgery | DX: R53.1 Weakness (principal); R11.0 Nausea; Z99.2 Dependence on renal dialysis | CPT/HCPCS: A0425; A0429 ==

== ENCOUNTER 2018-02-22 17:06 | Emergency (ER) | payer MEDICARE, MEDICAID ==
[2018-02-22] MEDS ORDERED: diltiaZEM INJ 5 MG/ML VIAL IVP STA (17:24)
--- NOTE | 2018-02-22 17:52 | ED Physician Documentation ---
History of Present Illness - Stated complaint Stated Complaint: WEAKNESS - Chief complaint Chief Complaint: General - History obtained from History obtained from: Patient, EMS - History of Present Illness Timing: Today Pain level max: 0 Pain level now: 0 Improved by: nothing Worsened by: nothing - Additonal information Additional information: Patient is a 67-year-old male on chronic hemodialysis. Sees Dr. Wu. He was feeling weak after dialysis today. Found to be in atrial fibrillation with rapid ventricular response, heart rate 130-160. He states he does not think he is on anything for his A. fib with RVR. Does not think he is taken anything for this. He was recently admitted to [facility] for same. No chest pain. No shortness of breath. Review of Systems Ten Systems: 10 systems reviewed and negative Constitutional: denies: Fever, Chills Ears: denies: Ear pain Nose: denies: Rhinorrhea / runny nose, Congestion Throat: denies: Sore throat Cardiac: denies: Chest pain / pressure Respiratory: denies: Cough GI: denies: Nausea, Vomiting, Diarrhea Skin: denies: Rash Musculoskeletal: denies: Neck pain, Back pain Neurologic: denies: Headache PD PAST MEDICAL HISTORY - Past Medical History Cardiovascular: Atrial fibrillation, Hypertension Respiratory: None Endocrine/Autoimmune: None GI: Colon polyps, C.difficile, Pancreatitis : Dialysis, Renal insuffiency HEENT: None Psych: None Musculoskeletal: Gout Derm: None - Past Surgical History Past Surgical History: No Ortho: Hip replacement - Present Medications Home Medications: Ambulatory Orders Medication Instructions Recorded Confirmed Metoprolol Succinate 150 mg PO DAILY 05/19/14 07/22/17 Darbepoetin [Aranesp] 100 mcg SUBQ ONCE 02/08/18 02/08/18 Digoxin 125 mcg PO 02/08/18 Folic Acid/Vit Bcomp,C [Katiuska-Dmitry 0.8 mg PO 02/08/18 Tablet] Omeprazole [PriLOSEC] 20 mg PO DAILY 02/08/18 02/08/18 Paricalcitol [Zemplar] 2 mcg PO 02/08/18 Vancomycin HCl [Vancocin HCl] 250 mg PO QID 02/22/18 02/22/18 - Allergies Allergies/Adverse Reactions: Allergies Allergy/AdvReac Type Severity Reaction Status Date / Time rosuvastatin calcium * Allergy Unknown Unknown Verified 02/22/18 17:14 [From Crestor] enoxaparin [From Lovenox] Allergy Unknown Verified 02/22/18 17:14 - Social History Does the pt smoke?: No Smoking Status: Never smoker Does the pt drink ETOH?: Yes Does the pt have substance abuse?: No - Immunizations Immunizations are current?: No Immunizations: TDAP >10years/unknown - POLST Patient has POLST: No PD ED PE NORMAL - Vitals Vital signs reviewed: Yes - General General: Alert and oriented X 3 - HEENT HEENT: PERRL, Moist mucous membranes, Pharynx benign - Neck Neck: Supple, no meningeal sign - Cardiac Cardiac: Other (irregular, tachycardic) - Respiratory Respiratory: No respiratory distress, Clear bilaterally - Abdomen Abdomen: Soft, Non tender, Non distended - Derm Derm: Warm and dry - Extremities Extremities: No calf tenderness / cord - Neuro Neuro: Alert and oriented X 3 - Psych Psych: Normal mood, Normal affect Results - Vitals Vitals: Vital Signs - 24 hr 02/22/18 02/22/18 02/22/18 17:07 17:30 17:58 Temperature 36.7 C Heart Rate 144 H 135 H 141 H Respiratory 16 20 20 Rate Blood Pressure 124/96 H 124/96 H 124/96 H O2 Saturation 99 98 99 02/22/18 02/22/18 02/22/18 18:00 18:30 19:10 Temperature 36.8 C Heart Rate 139 H 119 H 129 H Respiratory 21 22 21 Rate Blood Pressure 155/74 H 129/79 O2 Saturation 97 100 99 02/22/18 02/22/18 02/22/18 19:42 19:50 20:06 Temperature Heart Rate 124 H 139 H 126 H Respiratory 20 26 H 23 Rate Blood Pressure 139/82 H 141/93 H 144/82 H O2 Saturation 100 100 100 02/22/18 02/22/18 02/22/18 20:23 20:41 20:54 Temperature 37.3 C Heart Rate 122 H 121 H 121 H Respiratory 26 H 19 17 Rate Blood Pressure 137/73 H 129/74 129/74 O2 Saturation 98 99 98 02/22/18 02/22/18 02/22/18 21:20 21:35 21:55 Temperature 37.0 C Heart Rate 127 H 121 H 127 H Respiratory 27 H 26 H 24 Rate Blood Pressure 133/83 H 156/94 H 156/94 H O2 Saturation 98 100 99 Oxygen O2 Source Room air - EKG (time done) 1718 Rate: Rate (enter#) (145) Rhythm: Atrial fibrillation [place]: Normal QRS: Normal Ischemia: Normal ST segments - Labs Labs: Laboratory Tests 02/22/18 02/22/18 17:45 18:00 WBC 4.6 L RBC 3.28 L Hgb 10.8 L Hct 32.8 L MCV 100.1 H MCH 33.0 H MCHC 33.0 RDW 16.9 H Plt Count 219 MPV 6.6 L Neut # (Auto) 3.8 Lymph # (Auto) 0.3 L [place] # (Auto) 0.4 Eos # (Auto) 0.0 Baso # (Auto) 0.0 Absolute Nucleated RBC 0.00 Nucleated RBC % 0.0 Sodium 130 L Potassium 4.5 Chloride 91 L Carbon Dioxide 19 L Anion Gap 20.0 H BUN 12 Creatinine 5.3 H Estimated GFR (MDRD) 11 L Glucose 105 H Calcium 8.8 Total Bilirubin 0.4 AST 23 ALT 17 Alkaline Phosphatase 114 Total Protein 7.6 Albumin 3.4 Globulin 4.2 Albumin/Globulin Ratio 0.8 L Lipase 58 H PD MEDICAL DECISION MAKING - ED course Complexity details: reviewed results, re-evaluated patient, considered differential, d/w patient, d/w internet consultant ED course: Patient is a 67-year-old male on chronic hemodialysis with chronic atrial fibrillation. Found to be in atrial fibrillation with rapid ventricular response tonight. He was given diltiazem IV and placed on a diltiazem drip which did control his rate. We are unable to admit him here as he is a dialysis patient and we do not have the ability to perform dialysis here. There are no beds available at [facility], [facility], or [facility]. I discussed the case with Dr. Greg Wynn at 2024 from [facility] who graciously accepts in transfer. Patient will be transferred on a diltiazem drip to [facility]. This document was made in part using voice recognition software. While efforts are made to proofread this document, sound alike and grammatical errors may occur. - Sepsis Event Vital Signs: Vital Signs - 24 hr 02/22/18 02/22/1802/22/18 17:07 17:30 17:58 Temperature 36.7 C Heart Rate 144 H 135 H 141 H Respiratory 16 20 20 Rate Blood Pressure 124/96 H 124/96 H 124/96 H O2 Saturation 99 98 99 02/22/18 02/22/18 02/22/18 18:00 18:30 19:10 Temperature 36.8 C Heart Rate 139 H 119 H 129 H Respiratory 21 22 21 Rate Blood Pressure 155/74 H 129/79 O2 Saturation 97 100 99 02/22/18 02/22/18 02/22/18 19:42 19:50 20:06 Temperature Heart Rate 124 H 139 H 126 H Respiratory 20 26 H 23 Rate Blood Pressure 139/82 H 141/93 H 144/82 H O2 Saturation 100 100 100 02/22/18 02/22/18 02/22/18 20:23 20:41 20:54 Temperature 37.3 C Heart Rate 122 H 121 H 121 H Respiratory 26 H 19 17 Rate Blood Pressure 137/73 H 129/74 129/74 O2 Saturation 98 99 98 02/22/18 02/22/18 02/22/18 21:20 21:35 21:55 Temperature 37.0 C Heart Rate 127 H 121 H 127 H Respiratory 27 H 26 H 24 Rate Blood Pressure 133/83 H 156/94 H 156/94 H O2 Saturation 98 100 99 Oxygen O2 Source Room air Departure - Departure Disposition: 02 Transfer Acute Care Hosp Clinical Impression: Atrial fibrillation with RVR Condition: Stable Discharge Date/Time: 02/22/18 21:58
[2018-02-22 18:24] LABS: BASOPHILS % (AUTO) 0.5 %; EOSINOPHILS % (AUTO) 0.1 %; HGB - HEMOGLOBIN 10.8 g/dL (14.0-18.0); LYMPHOCYTES # (AUTO) 0.3 10^3/uL (1.5-3.5); MEAN CORPUSCULAR VOLUME 100.1 fL (80.0-94.0); MEAN PLATELET VOLUME 6.6 fL (7.4-11.4); MONOCYTES # (AUTO) 0.4 10^3/uL (0.0-1.0); MONOCYTES % (AUTO) 8.5 %; NEUTROPHILS # (AUTO) 3.8 10^3/uL (1.5-6.6); NEUTROPHILS % (AUTO) 83.9 %; PLT - PLATELET COUNT 219 10^3/uL (130-450); RED BLOOD COUNT 3.28 10^6/uL (4.70-6.10); RED CELL DISTRIBUTION WIDTH 16.9 % (12.0-15.0); WHITE BLOOD COUNT 4.6 x10^3/uL (4.8-10.8)
[2018-02-22 18:27] LABS: CALCIUM 8.8 mg/dL (8.5-10.3)
[2018-02-22 18:33] LABS: ALBUMIN 3.4 g/dL (3.2-5.5); ALBUMIN/GLOBULIN RATIO 0.8 (1.0-2.2); BILIRUBIN,TOTAL 0.4 mg/dL (0.2-1.0); CREATININE 5.3 mg/dL (0.6-1.2); TOTAL PROTEIN 7.6 g/dL (6.7-8.2)
[2018-02-22] MEDS ORDERED: diltiaZEM INJ 125 MG in DEXTROSE 5% 100 ML IV STA (18:57)
[2018-02-22] MEDS ORDERED: diltiaZEM INJ 5 MG/ML VIAL ONE (19:14)
[2018-02-22] MEDS ORDERED: DEXTROSE 5% 100 ML IV ONE (19:18)
[2018-02-22 21:36] VITALS: BP 156/94
== END 2018-02-22 21:58 | disposition short-term general hospital (02) ==
LOC: EDUNIT# → ED 17:06
DX: I48.2 Chronic atrial fibrillation (principal); I10 Essential (primary) hypertension; N28.9 Disorder of kidney and ureter, unspecified; Z99.2 Dependence on renal dialysis
CPT/HCPCS: 36415; 51701; 80053; 83690; 85025; 93005; 96365; 96366; 96375; 99285

== ENCOUNTER 2018-02-22 21:59 | Outpatient (CLI) | payer MEDICARE, MEDICAID | END 2018-02-22 22:00 | disposition short-term general hospital (02) | LOC: EMS 21:59 | PROVIDERS: ATTEND Surgery | DX: I48.91 Unspecified atrial fibrillation (principal); Z99.2 Dependence on renal dialysis | CPT/HCPCS: A0170; A0425; A0426 ==

== ENCOUNTER 2018-03-07 18:35 | Outpatient (CLI) | payer MEDICARE, MEDICAID | END 2018-03-07 18:36 | disposition critical access hospital (66) | LOC: EMS 18:35 | PROVIDERS: ATTEND Surgery | DX: M25.551 Pain in right hip (principal) | CPT/HCPCS: A0425; A0429 ==

== ENCOUNTER 2018-03-07 18:54 | Emergency (ER) | payer MEDICARE, MEDICAID ==
--- NOTE | 2018-03-07 19:02 | ED Physician Documentation ---
History of Present Illness - Stated complaint Stated Complaint: RT HIP DISLOCATION - History obtained from History obtained from: Patient, EMS - History of Present Illness Timing: Today Pain level max: 5 Pain level now: 5 Improved by: rest Worsened by: movement - Additonal information Additional information: Patient is approximately 2 months status post a total hip replacement on the right side is performed at [facility] in [place]. States he feels like the hip dislocated today. States normally it relocates on its own. States that it last happened yesterday but it relocated spontaneously. Review of Systems Constitutional: denies: Fever, Chills Cardiac: denies: Chest pain / pressure Respiratory: denies: Cough GI: denies: Vomiting Skin: denies: Rash Musculoskeletal: denies: Neck pain, Back pain Neurologic: denies: Headache PD PAST MEDICAL HISTORY - Past Medical History Cardiovascular: Atrial fibrillation, Hypertension Respiratory: None Endocrine/Autoimmune: None GI: Colon polyps, C.difficile, Pancreatitis : Dialysis, Renal insuffiency HEENT: None Psych: None Musculoskeletal: Gout Derm: None - Past Surgical History Past Surgical History: No Ortho: Hip replacement - Present Medications Home Medications: Ambulatory Orders Medication Instructions Recorded Confirmed Metoprolol Succinate 150 mg PO DAILY 05/19/14 07/22/17 Darbepoetin [Aranesp] 100 mcg SUBQ ONCE 02/08/18 02/08/18 Digoxin 125 mcg PO 02/08/18 Folic Acid/Vit Bcomp,C [Katiuska-Dmitry 0.8 mg PO 02/08/18 Tablet] Omeprazole [PriLOSEC] 20 mg PO DAILY 02/08/18 02/08/18 Paricalcitol [Zemplar] 2 mcg PO 02/08/18 Vancomycin HCl [Vancocin HCl] 250 mg PO QID 02/22/18 02/22/18 - Allergies Allergies/Adverse Reactions: Allergies Allergy/AdvReac Type Severity Reaction Status Date / Time rosuvastatin calcium * Allergy Unknown Unknown Verified 03/07/18 18:56 [From Crestor] enoxaparin [From Lovenox] Allergy Unknown Verified 03/07/18 18:56 - Social History Does the pt smoke?: No Smoking Status: Never smoker Does the pt drink ETOH?: Yes Does the pt have substance abuse?: No - Immunizations Immunizations are current?: No Immunizations: TDAP >10years/unknown - POLST Patient has POLST: No PD ED PE NORMAL - Vitals Vital signs reviewed: Yes - General General: Alert and oriented X 3, No acute distress - Derm Derm: Warm and dry - Extremities Extremities: Other (R hip - no deformity. no leg shortening. mild pain with limited ROM. NVI. ) - Neuro Neuro: Alert and oriented X 3 - Psych Psych: Normal mood, Normal affect Results - Vitals Vitals: Vital Signs - 24 hr 03/07/18 03/07/18 18:57 21:02 Temperature 36.9 C Heart Rate 113 H 99 Respiratory 18 18 Rate Blood Pressure 142/88 H 140/80 H O2 Saturation 100 100 Oxygen O2 Source Room air - Labs Labs: Laboratory Tests 03/07/18 03/07/18 19:10 19:10 WBC 3.6 L RBC 3.01 L Hgb 10.2 L Hct 30.4 L MCV 101.3 H MCH 34.0 H MCHC 33.6 RDW 18.1 H Plt Count 181 MPV 6.2 L Neut # (Auto) 2.6 Lymph # (Auto) 0.4 L [place] # (Auto) 0.6 Eos # (Auto) 0.0 Baso # (Auto) 0.0 Absolute Nucleated RBC 0.00 Nucleated RBC % 0.0 Sodium 137 Potassium 4.3 Chloride 97 L Carbon Dioxide 27 Anion Gap 13.0 BUN 31 H Creatinine 8.1 H* Estimated GFR (MDRD) 7 L Glucose 105 H Calcium 9.0 Total Bilirubin 0.9 AST 16 ALT 15 Alkaline Phosphatase 101 Total Protein 7.8 Albumin 3.1 L Globulin 4.7 H Albumin/Globulin Ratio 0.7 L Lipase 47 - Rads (name of study) R hip xray Radiology: Prelim report reviewed, EMP read contemporaneously, See rad report ( No evidence of fracture. Status post right total hip replacement without evidence of dislocation. ) PD MEDICAL DECISION MAKING - ED course Complexity details: reviewed results, re-evaluated patient, considered differential, d/w patient ED course: Patient is a 67-year-old male who states that he believes that his right hip prosthesis dislocated tonight. It is not dislocated on x-ray. He has no other complaints at this time and we will discharge him home to follow-up with his doctor. This document was made in part using voice recognition software. While efforts are made to proofread this document, sound alike and grammatical errors may occur. - Sepsis Event Vital Signs: Vital Signs - 24 hr 03/07/18 03/07/18 18:57 21:02 Temperature 36.9 C Heart Rate 113 H 99 Respiratory 18 18 Rate Blood Pressure 142/88 H 140/80 H O2 Saturation 100 100 Oxygen O2 Source Room air Departure - Departure Disposition: 01 Home, Self Care Clinical Impression: Hip pain Qualifiers: Laterality: right Qualified Code(s): M25.551 - Pain in right hip Condition: Good Instructions: ED Acute Pain [facility] Follow-Up: Frederic Lane MD [Primary Care Provider] - Within 1 week Comments: Your hip is not dislocated on xray today. Follow up with your doctor for further care. Discharge Date/Time: 03/07/18 21:02
[2018-03-07 19:23] LABS: BASOPHILS % (AUTO) 0.6 %; EOSINOPHILS % (AUTO) 0.2 %; HGB - HEMOGLOBIN 10.2 g/dL (14.0-18.0); LYMPHOCYTES # (AUTO) 0.4 10^3/uL (1.5-3.5); MEAN CORPUSCULAR HGB CONC 33.6 g/dL (32.0-36.0); MEAN CORPUSCULAR VOLUME 101.3 fL (80.0-94.0); MEAN PLATELET VOLUME 6.2 fL (7.4-11.4); MONOCYTES # (AUTO) 0.6 10^3/uL (0.0-1.0); MONOCYTES % (AUTO) 15.5 %; NEUTROPHILS # (AUTO) 2.6 10^3/uL (1.5-6.6); NEUTROPHILS % (AUTO) 73.7 %; PLT - PLATELET COUNT 181 10^3/uL (130-450); RED BLOOD COUNT 3.01 10^6/uL (4.70-6.10); RED CELL DISTRIBUTION WIDTH 18.1 % (12.0-15.0); WHITE BLOOD COUNT 3.6 x10^3/uL (4.8-10.8)
[2018-03-07 19:38] LABS: ALBUMIN 3.1 g/dL (3.2-5.5); ALBUMIN/GLOBULIN RATIO 0.7 (1.0-2.2); BILIRUBIN,TOTAL 0.9 mg/dL (0.2-1.0); TOTAL PROTEIN 7.8 g/dL (6.7-8.2)
[2018-03-07 19:39] LABS: CREATININE 8.1 mg/dL (0.6-1.2)
--- NOTE | 2018-03-07 20:44 | XRAY Report ---
Reason: R hip pain Procedure Date: 03/07/2018 Accession Number: [id number] / [id number] Procedure: XR - Hip w/Pelvis 2-3V RT CPT Code: FULL RESULT: EXAM: RIGHT HIP AND PELVIS RADIOGRAPHY EXAM DATE: 03/07/2018 08:14 PM. HISTORY: Right hip pain COMPARISONS: Right hip 06/11/2015. TECHNIQUE: 1 view of the pelvis and 1 view of the hip. FINDINGS: Bones: Normal. No fracture or bone lesion. Joints: Status post right total hip replacement. No evidence of dislocation. Soft Tissues: Normal. No soft tissue swelling. IMPRESSION: No evidence of fracture. Status post right total hip replacement without evidence of dislocation. RADIA
[2018-03-07 21:03] VITALS: BP 140/80
== END 2018-03-07 21:02 | disposition home or self-care (01) ==
LOC: EDUNIT# → ED 18:54
DX: M25.551 Pain in right hip (principal); I10 Essential (primary) hypertension; Z99.2 Dependence on renal dialysis; Z96.641 Presence of right artificial hip joint
CPT/HCPCS: 36415; 80053; 83690; 85025; 99283

== ENCOUNTER 2018-05-30 12:58 | Outpatient (CLI) | payer MEDICARE, MEDICAID | END 2018-05-30 12:59 | disposition short-term general hospital (02) | LOC: EMS 12:58 | PROVIDERS: ATTEND Surgery | DX: M25.561 Pain in right knee (principal); M25.551 Pain in right hip; W18.39XA Other fall on same level, initial encounter | CPT/HCPCS: A0425; A0429 ==

== ENCOUNTER 2018-07-07 17:17 | Outpatient (CLI) | payer MEDICARE, MEDICAID | END 2018-07-07 17:18 | disposition short-term general hospital (02) | LOC: EMS 17:17 | PROVIDERS: ATTEND Surgery | DX: R11.0 Nausea (principal); R00.0 Tachycardia, unspecified | CPT/HCPCS: A0425; A0427 ==

== ENCOUNTER 2019-01-18 08:50 | Outpatient (CLI) | payer MEDICARE, MEDICAID | END 2019-01-18 08:51 | disposition EMS.NT | LOC: EMS 08:50 | PROVIDERS: ATTEND Surgery | DX: Z03.89 Encounter for observation for other suspected diseases and conditions ruled out (principal) ==

== ENCOUNTER 2019-02-11 06:14 | Outpatient (CLI) | payer MEDICARE, MEDICAID | END 2019-02-11 06:15 | disposition critical access hospital (66) | LOC: EMS 06:14 | PROVIDERS: ATTEND Surgery | DX: M25.551 Pain in right hip (principal) | CPT/HCPCS: A0425; A0429 ==

== ENCOUNTER 2019-02-11 06:39 | Emergency (ER) | payer MEDICARE, MEDICAID ==
[2019-02-11] MEDS ORDERED: MORPHINE 10 MG/ML VIAL IVP STA (07:33)
[2019-02-11] MEDS ORDERED: ONDANSETRON 4 MG/2 ML VIAL IVP STA (07:33)
[2019-02-11 07:47] LABS: BASOPHILS % (AUTO) 0.4 %; EOSINOPHILS % (AUTO) 0.4 %; HGB - HEMOGLOBIN 10.2 g/dL (14.0-18.0); LYMPHOCYTES # (AUTO) 0.5 10^3/uL (1.5-3.5); LYMPHOCYTES % (AUTO) 9.2 %; MEAN CORPUSCULAR HEMOGLOBIN 30.8 pg (27.0-31.0); MEAN CORPUSCULAR VOLUME 96.4 fL (80.0-94.0); MEAN PLATELET VOLUME 8.5 fL (7.4-11.4); MONOCYTES % (AUTO) 20.4 %; NEUTROPHILS # (AUTO) 3.5 10^3/uL (1.5-6.6); NEUTROPHILS % (AUTO) 68.6 %; PLT - PLATELET COUNT 209 10^3/uL (130-450); RED BLOOD COUNT 3.31 10^6/uL (4.70-6.10); RED CELL DISTRIBUTION WIDTH 16.5 % (12.0-15.0); WHITE BLOOD COUNT 5.1 x10^3/uL (4.8-10.8)
[2019-02-11 08:02] LABS: ALBUMIN 3.1 g/dL (3.2-5.5); ALBUMIN/GLOBULIN RATIO 0.8 (1.0-2.2); ALKALINE PHOSPHATASE 84 IU/L (42-121); ALT ALANINE AMINOTRANSFERASE < 10 IU/L (10-60); AST ASPARTATE AMINOTRANSFERASE 10 IU/L (10-42); BILIRUBIN,TOTAL 0.9 mg/dL (0.2-1.0); BUN - BLOOD UREA NITROGEN 29 mg/dL (6-20); CALCIUM 10.1 mg/dL (8.5-10.3); CARBON DIOXIDE - CO2 24 mmol/L (21-32); CHLORIDE 97 mmol/L (101-111); CREATININE 7.1 mg/dL (0.6-1.2); GFR - MDRD 8 (>89); GLUCOSE 111 mg/dL (70-100); LIPASE 19 U/L (22-51); SODIUM 136 mmol/L (135-145); TOTAL PROTEIN 7.2 g/dL (6.7-8.2)
--- NOTE | 2019-02-11 08:25 | ED Physician Documentation ---
History of Present Illness - Stated complaint Stated Complaint: R HIP PX - Chief complaint Chief Complaint: Ext Problem - History obtained from History obtained from: Patient - History of Present Illness Timing: Prior to arrival (1.5 hours) Pain level max: 10 Pain level now: 8 - Additonal information Additional information: This is a 68-year-old male with a history of ESRD on HD, atrial fibrillation, hyperlipidemia, non-ambulatory at baseline, who presents with right hip pain. Patient states that he has had some hip pain In the past, and he sought care for similar hip pain around 1 year ago. At that time he was found to have a unremarkable x-ray and work-up, and was discharged, and the hip pain resolved over several days. Today he states that he may have "twisted" his hip And wonders if it is out of place. He denies any Fever, rash, or other pain at this time. His pain is currently severe, 8 out of 10 in severity. Review of Systems Constitutional: denies: Fever Cardiac: denies: Chest pain / pressure Respiratory: denies: Dyspnea GI: denies: Abdominal Pain Skin: denies: Rash Neurologic: denies: Generalized weakness PD PAST MEDICAL HISTORY - Past Medical History Cardiovascular: Atrial fibrillation, Hypertension Respiratory: None Endocrine/Autoimmune: None GI: Colon polyps, C.difficile, Pancreatitis : Dialysis, Renal insuffiency HEENT: None Psych: None Musculoskeletal: Osteoarthritis, Gout Derm: None - Past Surgical History Past Surgical History: No Ortho: Hip replacement - Present Medications Home Medications: Ambulatory Orders Medication Instructions Recorded Confirmed RX: Metoprolol Succinate 150 mg PO DAILY 05/19/14 07/22/17 Darbepoetin [Aranesp] 100 mcg SUBQ ONCE 02/08/18 02/08/18 Folic Acid/Vit Bcomp,C [Katiuska-Dmitry 0.8 mg PO 02/08/18 Tablet] Omeprazole [PriLOSEC] 20 mg PO DAILY 02/08/18 02/08/18 Paricalcitol [Zemplar] 2 mcg PO 02/08/18 RX: Digoxin 125 mcg PO 02/08/18 Vancomycin HCl [Vancocin HCl] 250 mg PO QID 02/22/18 02/22/18 - Allergies Allergies/Adverse Reactions: Allergies Allergy/AdvReac Type Severity Reaction Status Date / Time rosuvastatin calcium * Allergy Unknown Unknown Verified 03/07/18 18:56 [From Crestor] enoxaparin [From Lovenox] Allergy Unknown Verified 03/07/18 18:56 - Social History Does the pt smoke?: No Smoking Status: Never smoker Does the pt drink ETOH?: Yes Does the pt have substance abuse?: No - Immunizations Immunizations are current?: No Immunizations: TDAP >10years/unknown - POLST Patient has POLST: No PD ED PE NORMAL - Vitals Vital signs reviewed: Yes - General General: No acute distress - HEENT HEENT: PERRL - Neck Neck: Supple, no meningeal sign - Cardiac Cardiac: RRR, No murmur - Respiratory Respiratory: Clear bilaterally - Abdomen Abdomen: Normal bowel sounds, Soft, Non tender, Non distended - Derm Derm: Warm and dry - Extremities Extremities: Other (Patient's bilateral lower extremities are symmetric without edema. Patient resists movement of his right hip somewhat, but does have full passive range of motion of the hip. Is 5 out of 5 strength ankle dorsiflexion and plantarflexion sensation to light touch is intact over all extremities. He is not ambulatory at baseline.) - Neuro Neuro: No motor deficit, No sensory deficit, Normal speech - Psych Psych: Normal mood, Normal affect Results - Vitals Vitals: Vital Signs - 24 hr 02/11/19 02/11/19 02/11/19 06:42 09:17 10:34 Temperature 37.1 C 37.0 C Heart Rate 118 H 108 H 103 H Respiratory 22 18 18 Rate Blood Pressure 126/76 109/72 103/66 O2 Saturation 98 94 97 02/11/19 14:00 Temperature Heart Rate 78 Respiratory 18 Rate Blood Pressure 110/61 O2 Saturation 96 Oxygen O2 Source Room air - Labs Labs: Laboratory Tests 02/11/19 02/11/19 07:40 07:40 WBC 5.1 RBC 3.31 L Hgb 10.2 L Hct 31.9 L MCV 96.4 H MCH 30.8 MCHC 32.0 RDW 16.5 H Plt Count 209 MPV 8.5 Neut # (Auto) 3.5 Lymph # (Auto) 0.5 L [place] # (Auto) 1.0 Eos # (Auto) 0.0 Baso # (Auto) 0.0 Absolute Nucleated RBC 0.00 Nucleated RBC % 0.0 Sodium 136 Potassium 4.6 Chloride 97 L Carbon Dioxide 24 Anion Gap 15.0 H BUN 29 H Creatinine 7.1 H* Estimated GFR (MDRD) 8 L Glucose 111 H Calcium 10.1 Total Bilirubin 0.9 AST 10 ALT < 10 L Alkaline Phosphatase 84 Total Protein 7.2 Albumin 3.1 L Globulin 4.1 Albumin/Globulin Ratio 0.8 L Lipase 19 L PD MEDICAL DECISION MAKING - ED course Complexity details: considered differential (Fracture, dislocation, avascular necrosis, septic arthritis, bursitis, musculoskeletal strain) ED course: On initial examination patient is non-toxic appearing. He has significant pain with ROM of his right hip. Labs are drawn and show Elevated creatinine consistent with his end-stage renal disease, but his potassium and sodium are within normal limits. His CBC is unremarkable. X-rays obtained and shows no acute osseous abnormality or dislocation. On reexamination patient continues to be in pain despite receiving 4 mg of morphine. Given that he is nonambulatory and I cannot test if he can bear weight on his joint, CT scan of the pelvis was obtained to check for occult hip fracture. This returned and was negative for acute osseous abnormality. I reexamined the patient should the results with him, he is feeling improved and has good range of motion of his leg. He is afebrile, non-tachycardic and there are no convincing signs of septic arthritis. His vital signs are now within normal limits, and he feels well enough to discharge. I reviewed return precautions with the patient, recommended close follow-up with his primary care provider, and he was discharged from the em ergency department. Departure - Departure Disposition: 01 Home, Self Care Clinical Impression: Pain of lower extremity Qualifiers: Laterality: right Qualified Code(s): M79.604 - Pain in right leg Condition: Stable Instructions: ED RICE Follow-Up: Frederic Lane MD [Primary Care Provider] - Within 1 week Comments: You are seen today for hip pain, CT and x-ray showed no signs of an acute injury of your bones or joints. Please rest And ice her extremity, follow-up with your primary care provider. If you have any new or concerning symptoms such as fever or rash please return to the emergency department Discharge Date/Time: 02/11/19 15:36
--- NOTE | 2019-02-11 08:34 | XRAY Report ---
Reason: Right hip pain, possible fall Procedure Date: 02/11/2019 Accession Number: [id number] / [id number] Procedure: XR - Hip w/Pelvis 2-3V RT CPT Code: FULL RESULT: EXAM: RIGHT HIP RADIOGRAPHY EXAM DATE: 02/11/2019 08:15 AM. CLINICAL HISTORY: Right hip pain, possible fall. COMPARISON: Pelvis and right hip radiographs from 03/07/2018. Right hip radiographs from 06/11/2015. TECHNIQUE: 2 views. FINDINGS: Bones: There are postsurgical changes from right hip arthroplasty. The prosthesis appears intact. There is lucency of the osseous structures along the proximal aspect of the hip prosthesis, which is similar to the prior examination. No osseous expansion or definite cortical disruption is demonstrated. Joints: No dislocation or subluxation is demonstrated. There is mild-moderate superior joint space narrowing in the left hip. Soft Tissues: The visualized bowel gas pattern is unremarkable. Arterial calcifications overlie the pelvis. IMPRESSION: 1. No definite acute fracture is demonstrated. No dislocation. 2. Osseous lucency of the intertrochanteric region of the right femur, similar to the prior examination. No osseous expansion or cortical destruction is demonstrated, favoring osseous demineralization rather than particle disease. However, if there is persistent pain, could consider radiographic or MRI follow-up in 3-6 months. RADIA
[2019-02-11] MEDS ORDERED: SODIUM CHLORIDE 0.9% 250 ML IV ONE (09:12)
--- NOTE | 2019-02-11 09:57 | CT Report ---
Reason: Right hip pain, inability to bear weight Procedure Date: 02/11/2019 Accession Number: [id number] / [id number] Procedure: CT - PELVIS WO CPT Code: FULL RESULT: EXAM: CT BONY PELVIS WITHOUT CONTRAST EXAM DATE: 02/11/2019 09:35 AM. CLINICAL HISTORY: Right hip pain, inability to bear weight. COMPARISON: HIP W/PELVIS 2-3V RT 02/11/2019 7:48 AM. TECHNIQUE: Thin-section axial images were acquired of the pelvis without contrast. Post-processing: Coronal and sagittal reformats. Other: None. In accordance with CT protocol optimization, one or more of the following dose reduction techniques were utilized for this exam: automated exposure control, adjustment of mA and/or KV based on patient size, or use of iterative reconstructive technique. FINDINGS: Bones: Moderate generalized osteopenia. No visible fracture. There is a right femoral head prosthesis. The distal stem of the prosthesis is not visualized. Sacroiliac Joints: There is moderate degenerative change of both sacroiliac joints. Symphysis Pubis: Moderate degenerative change. Right Hip: Right hip prosthesis. Left Hip: Mild left hip osteoarthritis. Musculature: Normal. No fatty atrophy. Pelvic Cavity: There is a horseshoe kidney. There are numerous colonic diverticula. Other: No lymphadenopathy. No free air or free fluid. The other visualized soft tissues are unremarkable. IMPRESSION: 1. Moderate generalized osteopenia. No visible fracture. 2. Moderate degenerative change of the lower lumbar spine and left hip. 3. There is a right femoral head prosthesis. 4. There is a horseshoe kidney. RADIA
[2019-02-11 15:35] VITALS: BP 110/61
== END 2019-02-11 15:36 | disposition home or self-care (01) ==
LOC: ED 06:39
DX: M25.551 Pain in right hip (principal); M79.604 Pain in right leg; X50.1XXA Overexertion from prolonged static or awkward postures, initial encounter; Z96.641 Presence of right artificial hip joint; M16.12 Unilateral primary osteoarthritis, left hip; M85.89 Other specified disorders of bone density and structure, multiple sites; I12.0 Hypertensive chronic kidney disease with stage 5 chronic kidney disease or end stage renal disease; N18.6 End stage renal disease; Z99.2 Dependence on renal dialysis; I48.91 Unspecified atrial fibrillation; E78.5 Hyperlipidemia, unspecified
CPT/HCPCS: 36415; 72192; 80053; 83690; 85025; 96361; 96374; 99284

== ENCOUNTER 2019-06-23 17:21 | Outpatient (CLI) | payer MEDICARE, MEDICAID | END 2019-06-23 17:22 | disposition critical access hospital (66) | LOC: EMS 17:21 | PROVIDERS: ATTEND Surgery | DX: M54.5 Low back pain (principal); M54.2 Cervicalgia; W05.0XXA Fall from non-moving wheelchair, initial encounter; Y92.481 Parking lot as the place of occurrence of the external cause | CPT/HCPCS: A0425; A0429 ==

== ENCOUNTER 2019-06-23 17:45 | Emergency (ER) | payer MEDICARE, MEDICAID ==
--- NOTE | 2019-06-23 18:18 | ED Physician Documentation ---
PD HPI MAJOR TRAUMA - Stated complaint Stated Complaint: FALL - Chief complaint Chief Complaint: Trauma Hd/Nk - History obtained from History obtained from: Patient - History of Present Illness Mechanism of injury: Fell (68-year-old gentleman with history of A. fib, some alcohol issues, he is in a wheelchair. It sounds like the wheelchair went over backwards. He does not really know why, he thinks he remembers it all but is not sure. He complains of back pain and rib pain, also some low neck pain. No headache but he could have been amnestic to the incident. Declines pain medication on initial evaluation. Says he is not anticoagulated.) Review of Systems Ten Systems: 10 systems reviewed and negative Constitutional: denies: Fever, Chills Throat: denies: Oral lesions / sores Cardiac: denies: Chest pain / pressure, Palpitations Respiratory: denies: Dyspnea, Cough PD PAST MEDICAL HISTORY - Past Medical History Cardiovascular: Atrial fibrillation, Hypertension Respiratory: None Endocrine/Autoimmune: None GI: Colon polyps, C.difficile, Pancreatitis : Dialysis, Renal insuffiency HEENT: None Psych: None Musculoskeletal: Osteoarthritis, Gout Derm: None - Past Surgical History Past Surgical History: No Ortho: Hip replacement - Present Medications Home Medications: Ambulatory Orders Medication Instructions Recorded Confirmed Metoprolol Succinate 150 mg PO DAILY 05/19/14 06/23/19 Darbepoetin [Aranesp] 100 mcg SUBQ ONCE 02/08/18 06/23/19 Folic Acid/Vit B Complex and C 0.8 mg PO DAILY 02/08/18 06/23/19 [Katiuska-Dmitry Tablet] - Allergies Allergies/Adverse Reactions: Allergies Allergy/AdvReac Type Severity Reaction Status Date / Time rosuvastatin calcium * Allergy Unknown Unknown Verified 06/23/19 17:55 [From Crestor] enoxaparin [From Lovenox] Allergy Unknown Verified 06/23/19 17:55 - Social History Does the pt smoke?: No Smoking Status: Never smoker Does the pt drink ETOH?: Yes Does the pt have substance abuse?: No - Family History Family history: reports: Non contributory - Immunizations Immunizations are current?: No Immunizations: TDAP >10years/unknown - POLST Patient has POLST: No PD ED PE NORMAL - Vitals Vital signs reviewed: Yes - General General: Alert and oriented X 3, No acute distress - HEENT HEENT: PERRL, EOMI - Neck Neck: No bony TTP (maintained in c collar) - Cardiac Cardiac: RRR, No murmur, Other (quite ttp both upper ribs bilat) - Respiratory Respiratory: No respiratory distress, Clear bilaterally - Abdomen Abdomen: Soft, Non tender - Back Back: No CVA TTP, Other (diffuse spinal ttp) - Derm Derm: Normal color, Warm and dry - Extremities Extremities: No edema, No calf tenderness / cord - Neuro Neuro: Alert and oriented X 3, Normal speech Results - Vitals Vitals: Vital Signs - 24 hr 06/23/19 06/23/19 17:48 20:14 Temperature 36.7 C 36.5 C Heart Rate 102 H 99 Respiratory 16 18 Rate Blood Pressure 145/83 H 129/87 H O2 Saturation 95 96 Oxygen O2 Source Room air - Labs Labs: Laboratory Tests 06/23/19 06/23/19 06/23/19 19:50 19:50 19:50 WBC 5.9 RBC 2.97 L Hgb 9.1 L Hct 28.8 L MCV 97.0 H MCH 30.6 MCHC 31.6 L RDW 17.4 H Plt Count 202 MPV 9.0 Neut # (Auto) 4.6 Lymph # (Auto) 0.7 L [place] # (Auto) 0.5 Eos # (Auto) 0.1 Baso # (Auto) 0.0 Absolute Nucleated RBC 0.00 Nucleated RBC % 0.0 PT 14.4 H INR 1.3 H Sodium 138 Potassium 5.6 H Chloride 98 L Carbon Dioxide 28 Anion Gap 12.0 BUN 39 H Creatinine 5.7 H Estimated GFR (MDRD) 10 L Glucose 102 H Calcium 9.8 Total Bilirubin 1.1 H AST 11 ALT 11 Alkaline Phosphatase 109 Total Protein 8.4 H Albumin 3.5 Globulin 4.9 H Albumin/Globulin Ratio 0.7 L Lipase 33 Ethyl Alcohol < 5.0 - Rads (name of study) CT head, cervical spine, lumbar spine Radiology: EMP read contemporaneously (Chronic and degenerative changes, no acute findings) CT T spine Radiology: EMP read contemporaneously (Patient with a rigid spine due to DISH, fractures involving the anterior inferior endplates of T9 and T10 concerning for unstable injury. Right posterior 10th rib fracture.) CT Chest Radiology: EMP read contemporaneously (1. Potentially unstable spine fracture at T9-T10 with mild disk space widening and fracture through anterior inferior T9 and anterosuperior T10 endplates in this patient with a rigid spine related to diffuse idiopathic skeletal hyperostosis. No aubree posterior element involvement is identified, although bones appear demineralized, which somewhat decreases the sensitivity. 2. Nondisplaced fracture of the right posterior 10th rib. 3. Approximately 2.3 x 11.4 x 12.6 cm circumscribed middle depth subcutaneous fluid density collection in the anterolateral mid right chest wall which is of uncertain chronicity. There is some minimal adjacent subcutaneous fat stranding. Clinical correlation is requested. 4. No other evidence of chest injury. 5. Moderate left gynecomastia. 6. Mild cardiomegaly. 7. Moderate aortic valve calcification. 8. Moderate left main coronary artery calcification. 9. 2.1 x 3.9 cm lower pole right thyroid nodule which could reflect adenoma or carcinoma. Thyroid function tests and thyroid ultrasound may help in further characterization. 10. Mild scarring in the posterior segment right upper lobe and at the left lung base. ) PD MEDICAL DECISION MAKING - ED course ED course: 68-year-old gentleman with multiple comorbidities had a fall from a wheelchair mostly with back pain. CTs as shown, given the diffuse skeletal hyperostosis, this injury is considered unstable by the radiologist and we sent the images to [facility] and I reviewed the case with Dr. Debra Ashby, the spine surgeon there who agrees he should be transferred down for surgical management and he accepts the patient in transfer. Cobras were completed. He is stable for transport to a higher level of care for neurosurgical evaluation and potential fixation in the setting of multiple comorbidities including renal failure. Departure - Departure Disposition: 02 Transfer Acute Care Hosp Clinical Impression: DISH (diffuse idiopathic skeletal hyperostosis), ESRD (end stage renal disease) on dialysis T9 vertebral fracture Qualifiers: Encounter type: initial encounter Fracture type: closed Fracture morphology: wedge compression Qualified Code(s): S22.070A - Wedge compression fracture of T9-T10 vertebra, initial encounter for closed fracture T10 vertebral fracture Qualifiers: Encounter type: initial encounter Fracture type: closed Fracture morphology: wedge compression Qualified Code(s): S22.070A - Wedge compression fracture of T9-T10 vertebra, initial encounter for closed fracture Rib fracture Qualifiers: Encounter type: initial encounter Rib fracture type: single rib Fracture type: closed Laterality: right Qualified Code(s): S22.31XA - Fracture of one rib, right side, initial encounter for closed fracture Condition: Serious
--- NOTE | 2019-06-23 19:12 | CT Report ---
Reason: fall amnesia Procedure Date: 06/23/2019 Accession Number: [id number] / [id number] Procedure: CT - HEAD WO CPT Code: Final Report FULL RESULT: EXAM: CT HEAD EXAM DATE: 06/23/2019 06:46 PM. CLINICAL HISTORY: Fall amnesia. COMPARISON: HEAD W/O 07/22/2017 4:39 PM CERVICAL SPINE W/O 06/23/2019 6:33 PM. TECHNIQUE: Multiaxial CT images were obtained from the foramen magnum to the vertex. Reformats: Sagittal and coronal. IV contrast: None. In accordance with CT protocol optimization, one or more of the following dose reduction techniques were utilized for this exam: automated exposure control, adjustment of mA and/or KV based on patient size, or use of iterative reconstructive technique. FINDINGS: Parenchyma: Mild patchy hypodensity in the bilateral cerebral white matter, as before. No high density lesions. No mass-effect. Land-white differentiation is intact. Extraaxial Spaces: Normal for age. No subdural or epidural collections identified. Ventricles: Normal in size and position. Sinuses and Orbits: Mild mucosal thickening inferiorly in the right maxillary sinus antrum. Otherwise, the paranasal sinuses are clear as are mastoids and middle ears. Orbits are symmetric. Bones: No evidence of fracture or calvarial defect. Other: None. IMPRESSION: 1. No intracranial hemorrhage or skull fracture. 2. Mild chronic small vessel ischemic change in the bilateral cerebral white matter, as before. RADIA
--- NOTE | 2019-06-23 19:18 | CT Report ---
Reason: Fall amnesia Procedure Date: 06/23/2019 Accession Number: [id number] / [id number] Procedure: CT - CERVICAL SPINE WO CPT Code: Final Report FULL RESULT: EXAM: CT CERVICAL SPINE WITHOUT CONTRAST DATE: 06/23/2019 06:46 PM. HISTORY: Fall. Amnesia. COMPARISONS: CERVICAL SPINE W/O 07/22/2017 4:41 PM. TECHNIQUE: Thin-section axial images were acquired of the cervical spine without contrast. Post-processing: Coronal and sagittal reformats. Other: None. In accordance with CT protocol optimization, one or more of the following dose reduction techniques were utilized for this exam: automated exposure control, adjustment of mA and/or KV based on patient size, or use of iterative reconstructive technique. FINDINGS: Alignment: No scoliosis or spondylolisthesis. Bones: No fracture or bone lesion. Incomplete posterior arch of C1, a normal variant. DISH. Interspace Levels/Facets: C1-C2: Anterior degenerative changes. C2-C3: Unremarkable. C3-C4: Moderate disk space narrowing. C4-C5: Anterior bridging osteophytes. C5-C6: Severe disk space narrowing. C6-C7: Severe disk space narrowing. C7-T1: Mild dysplasia. Musculature: Normal. No fatty atrophy. Other: Moderate bilateral carotid artery calcification. Large midline 4 cm thyroid nodule. Stable right apical calcified scarring. IMPRESSION: 1. No acute cervical spine abnormality. 2. Stable multilevel degenerative disk disease, severe at C5-C6 and C6-C7. 3. Anterior 4 cm thyroid nodule. RADIA
--- NOTE | 2019-06-23 19:25 | CT Report ---
Reason: back pain fall Procedure Date: 06/23/2019 Accession Number: [id number] / [id number] Procedure: CT - LUMBAR SPINE WO CPT Code: Addended Final Report FULL RESULT: EXAM: CT LUMBAR SPINE WITHOUT CONTRAST EXAM DATE: 06/23/2019 06:55 PM. CLINICAL HISTORY: Back pain. Fall. COMPARISONS: None. TECHNIQUE: Thin-section axial images were acquired of the lumbar spine from T12 to S1 without contrast. Post-processing: Coronal and sagittal reformats. Other: None. In accordance with CT protocol optimization, one or more of the following dose reduction techniques were utilized for this exam: automated exposure control, adjustment of mA and/or KV based on patient size, or use of iterative reconstructive technique. FINDINGS: Alignment: No scoliosis or spondylolisthesis. Bones: Five [id number] lumbar vertebral bodies are present. No fractures or bone lesions. Disk Levels/Facets: T12-L1: Unremarkable. L1-L2: Unremarkable. L2-L3: Unremarkable. L3-L4: Mild disk space narrowing. Mild facet arthropathy. L4-L5: Moderate disk space narrowing. Mild facet arthropathy and ligamentum hypertrophy. Mild spinal stenosis. L5-S1: Mild disk space narrowing. Musculature: Normal. No fatty atrophy. Other: Horseshoe kidneys noted. IMPRESSION: 1. No acute lumbar spine abnormalities. 2. Multilevel degenerative disk disease, worst at L4-L5. 3. Horseshoe kidneys noted. RADIA ADDENDUM: 06/23/19 19:28 DISH, with rigid spine down to L1. No acute fracture identified.
--- NOTE | 2019-06-23 19:40 | CT Report ---
Reason: chest injury Procedure Date: 06/23/2019 Accession Number: [id number] / [id number] Procedure: CT - CHEST WO CPT Code: Final Report FULL RESULT: EXAM: CT CHEST EXAM DATE: 06/23/2019 06:48 PM. CLINICAL HISTORY: Chest injury. COMPARISONS: THORACIC SPINE W/O 06/23/2019 6:37 PM. TECHNIQUE: Routine helical CT imaging was performed through the chest. IV contrast: None. Reconstructions: Coronal and sagittal. In accordance with CT protocol optimization, one or more of the following dose reduction techniques were utilized for this exam: automated exposure control, adjustment of mA and/or KV based on patient size, or use of iterative reconstructive technique. FINDINGS: Lungs/Pleura: There is bandlike scarring and parous cicatricial emphysema in the posterior segment right upper lobe. There is minimal scarring in the apical right upper lobe. There is minimal wispy atelectasis and/or scarring in the left lung base. There is mild paraseptal emphysema in the medial segment right middle lobe. There is no centrilobular emphysema or generalized interstitial abnormality. Central airways are normal. There is no pleural fluid or pneumothorax. Mediastinum: There is mild cardiomegaly. There is mild mitral annular calcification. There is moderate aortic valve calcification. There is minimal calcification in the normal caliber thoracic aorta. Central pulmonary arteries are not enlarged. There is moderate calcification in the left main coronary artery. There is a 2.1 x 3.9 cm circumscribed hypodense nodule arising from the anterior lower pole of the right thyroid lobe. The esophagus is not dilated. There is no lymphadenopathy. Bones: In this patient with diffuse idiopathic skeletal hyperostosis and a rigid spine, there is mildly displaced fracture through the flowing anterior osteophytes and inferior T9 and superior T10 endplates with subtle focal lordosis. There is a nondisplaced fracture of the anterior cortex of the posterior right 10th rib. Visualized Abdomen: Unremarkable. Other: There is moderate left gynecomastia. There is a diskoid circumscribed fluid density collection in the subcutaneous right anterolateral chest wall spanning approximately 2.3 x 11.4 x 12.6 cm with mild adjacent wispy subcutaneous fat stranding. There is a 1.5 x 2.8 x 2.6 cm superficial subcutaneous fluid density nodule at the posterior lower right chest wall along with smaller similar nodules in the posterior upper right chest wall, probably sebaceous cysts. IMPRESSION: 1. Potentially unstable spine fracture at T9-T10 with mild disk space widening and fracture through anterior inferior T9 and anterosuperior T10 endplates in this patient with a rigid spine related to diffuse idiopathic skeletal hyperostosis. No aubree posterior element involvement is identified, although bones appear demineralized, which somewhat decreases the sensitivity. 2. Nondisplaced fracture of the right posterior 10th rib. 3. Approximately 2.3 x 11.4 x 12.6 cm circumscribed middle depth subcutaneous fluid density collection in the anterolateral mid right chest wall which is of uncertain chronicity. There is some minimal adjacent subcutaneous fat stranding. Clinical correlation is requested. 4. No other evidence of chest injury. 5. Moderate left gynecomastia. 6. Mild cardiomegaly. 7. Moderate aortic valve calcification. 8. Moderate left main coronary artery calcification. 9. 2.1 x 3.9 cm lower pole right thyroid nodule which could reflect adenoma or carcinoma. Thyroid function tests and thyroid ultrasound may help in further characterization. 10. Mild scarring in the posterior segment right upper lobe and at the left lung base. RADIA The critical result notification system was initiated by Dr. Barry Qiu at 07:24 PM on 06/23/2019. The above critical result findings were discussed with Jc Parker by Dr. Barry Qiu at 07:29 PM on 06/23/2019.
--- NOTE | 2019-06-23 19:40 | CT Report ---
Reason: back pain fall Procedure Date: 06/23/2019 Accession Number: [id number] / [id number] Procedure: CT - THORACIC SPINE WO CPT Code: Final Report FULL RESULT: EXAM: CT THORACIC SPINE WITHOUT CONTRAST EXAM DATE: 06/23/2019 06:56 PM. CLINICAL HISTORY: Back pain fall. COMPARISONS: CT chest, CT lumbar spine performed concurrently. TECHNIQUE: Thin-section axial images were acquired of the thoracic spine from T1 to T12 without contrast. Post-processing: Coronal and sagittal reformats. Other: None. In accordance with CT protocol optimization, one or more of the following dose reduction techniques were utilized for this exam: automated exposure control, adjustment of mA and/or KV based on patient size, or use of iterative reconstructive technique. FINDINGS: Alignment: Minimal right convex thoracic spine curvature. No subluxation. Subtle focal lordosis at T9-T10. Bones: Transverse fracture through flowing anterior osteophytes at T9-T10 with fracture line involvement of the anterior inferior endplate of T9 and right anterosuperior endplate of T10. No fracture line involvement of middle or posterior columns is identified. Bones appeared diffusely demineralized, however. There is a nondisplaced fracture of the anterior cortex of the posterior right 10th rib. Disk Levels/Facets: Slight widening of the T9-T10 disk space. Flowing osteophyte formation anteriorly from T2-T3 through T12-L1 indicating diffuse idiopathic skeletal hyperostosis. Facets are unremarkable. In particular, there is no malalignment of T9-T10 facets. Musculature: Normal. No fatty atrophy. Other: See report of CT chest performed concurrently. IMPRESSION: 1. In this patient with a rigid spine related to diffuse idiopathic skeletal hyperostosis, there are fractures involving the anterior inferior endplates of T9 and T10 with slight focal lordosis and slight disk space widening, indicating a potentially unstable injury. No facet malalignment or posterior element fracture is identified, although bones appear diffusely demineralized, which decreases the sensitivity for nondisplaced fracture. 2. Nondisplaced fracture through the posterior right 10th rib. RADIA The critical result notification system was initiated by Dr. Barry Qiu at 07:24 PM on 06/23/2019. The above critical result findings were discussed with Jc Parker by Dr. Barry Smoots at 07:29 PM on 06/23/2019.
[2019-06-23] MEDS ORDERED: MORPHINE 2 MG/ML CARPUJECT IVP STA ×2 (19:58→21:16)
[2019-06-23 19:59] LABS: BASOPHILS % (AUTO) 0.5 %; EOSINOPHILS # (AUTO) 0.1 10^3/uL (0.0-0.7); EOSINOPHILS % (AUTO) 1.5 %; HGB - HEMOGLOBIN 9.1 g/dL (14.0-18.0); LYMPHOCYTES # (AUTO) 0.7 10^3/uL (1.5-3.5); LYMPHOCYTES % (AUTO) 11.4 %; MEAN CORPUSCULAR HEMOGLOBIN 30.6 pg (27.0-31.0); MEAN CORPUSCULAR HGB CONC 31.6 g/dL (32.0-36.0); MONOCYTES # (AUTO) 0.5 10^3/uL (0.0-1.0); MONOCYTES % (AUTO) 8.1 %; NEUTROPHILS # (AUTO) 4.6 10^3/uL (1.5-6.6); NEUTROPHILS % (AUTO) 77.7 %; PLT - PLATELET COUNT 202 10^3/uL (130-450); RED BLOOD COUNT 2.97 10^6/uL (4.70-6.10); RED CELL DISTRIBUTION WIDTH 17.4 % (12.0-15.0); WHITE BLOOD COUNT 5.9 x10^3/uL (4.8-10.8)
[2019-06-23 20:01] LABS: INR 1.3 (0.8-1.2); PT - PROTHROMBIN TIME 14.4 secs (9.9-12.6)
[2019-06-23 20:09] LABS: ALBUMIN 3.5 g/dL (3.2-5.5); ALBUMIN/GLOBULIN RATIO 0.7 (1.0-2.2); ALKALINE PHOSPHATASE 109 IU/L (42-121); ALT ALANINE AMINOTRANSFERASE 11 IU/L (10-60); AST ASPARTATE AMINOTRANSFERASE 11 IU/L (10-42); BILIRUBIN,TOTAL 1.1 mg/dL (0.2-1.0); BUN - BLOOD UREA NITROGEN 39 mg/dL (6-20); CALCIUM 9.8 mg/dL (8.5-10.3); CARBON DIOXIDE - CO2 28 mmol/L (21-32); CHLORIDE 98 mmol/L (101-111); CREATININE 5.7 mg/dL (0.6-1.2); GFR - MDRD 10 (>89); GLUCOSE 102 mg/dL (70-100); LIPASE 33 U/L (22-51); SODIUM 138 mmol/L (135-145); TOTAL PROTEIN 8.4 g/dL (6.7-8.2)
[2019-06-23 20:15] VITALS: BP 129/87
== END 2019-06-23 21:50 | disposition short-term general hospital (02) ==
LOC: EDBD → EDUNIT# → ED 17:45
DX: S22.31XA Fracture of one rib, right side, initial encounter for closed fracture (principal); S22.070A Wedge compression fracture of T9-T10 vertebra, initial encounter for closed fracture; W17.89XA Other fall from one level to another, initial encounter; V00.818A Other accident with wheelchair (powered), initial encounter; M48.10 Ankylosing hyperostosis [Forestier], site unspecified; I12.9 Hypertensive chronic kidney disease with stage 1 through stage 4 chronic kidney disease, or unspecified chronic kidney disease; N18.6 End stage renal disease; Z99.2 Dependence on renal dialysis; Z99.3 Dependence on wheelchair
CPT/HCPCS: 70450; 71250; 72125; 72128; 72131; 80053; 80320; 83690; 85025; 85610; 96374; 96376; 99283

== ENCOUNTER 2019-06-23 21:50 | Outpatient (CLI) | payer MEDICARE, MEDICAID | END 2019-06-23 21:51 | disposition short-term general hospital (02) | LOC: EMS 21:50 | PROVIDERS: ATTEND Surgery | DX: S22.070A Wedge compression fracture of T9-T10 vertebra, initial encounter for closed fracture (principal); S22.31XA Fracture of one rib, right side, initial encounter for closed fracture; W05.0XXA Fall from non-moving wheelchair, initial encounter | CPT/HCPCS: A0425; A0429 ==

== ENCOUNTER 2019-08-30 03:35 | Outpatient (CLI) | payer MEDICARE, MEDICAID | END 2019-08-30 03:36 | disposition critical access hospital (66) | LOC: EMS 03:35 | PROVIDERS: ATTEND Surgery | DX: R06.02 Shortness of breath (principal) | CPT/HCPCS: A0425; A0427 ==

== ENCOUNTER 2019-08-30 03:50 | Emergency (ER) | payer MEDICARE, MEDICAID ==
--- NOTE | 2019-08-30 04:14 | ED Physician Documentation ---
PD HPI DYSPNEA - Stated complaint Stated Complaint: SOA - Chief complaint Chief Complaint: Resp - History obtained from History obtained from: Patient, EMS - History of Present Illness Timing - onset: How many hours ago (2-3) Timing - onset during: Rest Timing - details: Gradual onset Pain level now: 0 Improved by: BiPAP / CPAP Associated symptoms: Bilateral edema. No: Fever, Cough, Hemoptysis, Wheezing, Chest pain / discomfort, Palpitations, Diaphoresis, Unilateral edema, Anxiety Recently seen: Not recently seen - Additional information Additional information: BIBA. patient called 911 for dyspnea starting few hours [employer] and steadily worsening. he gets hemodialysis MWF although he says he cannot recall if he had dialysis yesterday. EMS found patient to have 83% pulse ox on their arrival and severely dyspneic, but dramatic improvement en route with cpap. Review of Systems Constitutional: reports: Reviewed and negative Eyes: reports: Reviewed and negative Ears: reports: Reviewed and negative Nose: reports: Reviewed and negative Throat: reports: Reviewed and negative Cardiac: reports: Reviewed and negative Respiratory: reports: Dyspnea. denies: Cough GI: reports: Reviewed and negative : reports: Reviewed and negative (patient says he does still produce some urine). denies: Dysuria, Frequency Skin: reports: Reviewed and negative Musculoskeletal: reports: Extremity swelling Neurologic: denies: Generalized weakness, Focal weakness, Numbness PD PAST MEDICAL HISTORY - Past Medical History Cardiovascular: Atrial fibrillation, Hypertension Respiratory: None Neuro: None Endocrine/Autoimmune: None GI: Colon polyps, C.difficile, Pancreatitis : Dialysis, Renal insuffiency HEENT: None Psych: None Musculoskeletal: Osteoarthritis, Gout Derm: None - Past Surgical History Past Surgical History: No Ortho: Hip replacement - Present Medications Home Medications: Ambulatory Orders Medication Instructions Recorded Confirmed Aspirin [Harlan Aspirin EC] 1 tab DAILY 08/30/19 08/30/19 Metoprolol Succinate [Toprol Xl] 3 tab DAILY PM 08/30/19 08/30/19 Omeprazole 1 tab DAILY 08/30/19 08/30/19 Sevelamer Carbonate [Renvela] 2 tab TID 08/30/19 08/30/19 - Allergies Allergies/Adverse Reactions: Allergies Allergy/AdvReac Type Severity Reaction Status Date / Time rosuvastatin calcium * Allergy Unknown Unknown Verified 06/23/19 17:55 [From Crestor] enoxaparin [From Lovenox] Allergy Unknown Verified 06/23/19 17:55 - Social History Does the pt smoke?: No Smoking Status: Never smoker Does the pt drink ETOH?: Yes Does the pt have substance abuse?: No - Immunizations Immunizations are current?: No Immunizations: TDAP >10years/unknown - POLST Patient has POLST: No PD ED PE NORMAL - Vitals Vital signs reviewed: Yes - General General: No acute distress, Well developed/nourished, Other (AAOx2) - HEENT HEENT: PERRL, EOMI - Neck Neck: Supple, no meningeal sign - Cardiac Cardiac: No murmur - Respiratory Respiratory: No respiratory distress, Other (BiPAP in place) - Abdomen Abdomen: Soft, Non tender - Derm Derm: Normal color, Warm and dry - 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, No motor deficit, No sensory deficit Eye Opening: Spontaneous Motor: Obeys Commands Verbal: Confused GCS Score: 14 PD ED PE EXPANDED - Cardiac Cardiac: Tachy, Irregularly irregular - Extremities Extremities: Pedal edema bilateral Results - Vitals Vitals: Oxygen O2 Source BIPAP - EKG (time done) No standard instances Rate: Rate (enter#) (151), Tachy Rhythm: Atrial fibrillation [place]: Normal QRS: Normal Ischemia: Normal ST segments - Labs Labs: Laboratory Tests 08/30/19 08/30/19 08/30/19 04:00 04:00 04:00 WBC 6.1 RBC 3.82 L Hgb 12.9 L Hct 40.6 L MCV 106.3 H MCH 33.8 H MCHC 31.8 L RDW 19.0 H Plt Count 116 L MPV 9.3 Neut # (Auto) 5.0 Lymph # (Auto) 0.4 L [place] # (Auto) 0.6 Eos # (Auto) 0.0 Baso # (Auto) 0.0 Absolute Nucleated RBC 0.00 Nucleated RBC % 0.0 Sodium 132 L Potassium 5.5 H Chloride 92 L Carbon Dioxide 21 Anion Gap 19.0 H BUN 93 H* Creatinine 10.3 H* Estimated GFR (MDRD) 5 L Glucose 152 H Calcium 10.4 H Total Bilirubin 0.9 AST 21 ALT 19 Alkaline Phosphatase 138 H Ammonia B-Natriuretic Peptide 1274 H Total Protein 8.6 H Albumin 3.9 Globulin 4.7 H Albumin/Globulin Ratio 0.8 L Lipase 36 Ethyl Alcohol 08/30/19 08/30/19 05:19 05:25 WBC RBC Hgb Hct MCV MCH MCHC RDW Plt Count MPV Neut # (Auto) Lymph # (Auto) [place] # (Auto) Eos # (Auto) Baso # (Auto) Absolute Nucleated RBC Nucleated RBC % Sodium Potassium Chloride Carbon Dioxide Anion Gap BUN Creatinine Estimated GFR (MDRD) Glucose Calcium Total Bilirubin AST ALT Alkaline Phosphatase Ammonia 19.1 B-Natriuretic Peptide Total Protein Albumin Globulin Albumin/Globulin Ratio Lipase Ethyl Alcohol < 5.0 - Rads (name of study) chest xray Radiology: Prelim report reviewed, See rad report PD MEDICAL DECISION MAKING - ED course Complexity details: reviewed results, re-evaluated patient, considered differential, d/w patient ED course: mildly confused, including unsure of day/date/year, and cannot recall if he had dialysis yesterday although recognizes I should have, since it was a Thursday. However, has quick recall of first and last name of his vision rehabilitation therapist and answers most of my questions appropriately and accurately. Contacted [facility] but they have no beds available. I was subsequently able to arrange for transfer to [facility] Departure - Departure Disposition: 02 Transfer Acute Care Hosp Clinical Impression: Atrial fibrillation with RVR, ESRD (end stage renal disease) on dialysis Congestive heart failure Qualifiers: Heart failure type: unspecified Heart failure chronicity: unspecified Qualified Code(s): I50.9 - Heart failure, unspecified Condition: Fair Discharge Date/Time: 08/30/19 08:10
[2019-08-30] MEDS ORDERED: NITROGLYCERIN 2% PASTE TOP STA (04:17)
[2019-08-30] MEDS ORDERED: FUROSEMIDE 40 MG/4 ML VIAL IVP STA (04:17)
[2019-08-30 04:24] LABS: BASOPHILS % (AUTO) 0.7 %; EOSINOPHILS % (AUTO) 0.7 %; HGB - HEMOGLOBIN 12.9 g/dL (14.0-18.0); LYMPHOCYTES # (AUTO) 0.4 10^3/uL (1.5-3.5); LYMPHOCYTES % (AUTO) 6.3 %; MEAN CORPUSCULAR HEMOGLOBIN 33.8 pg (27.0-31.0); MEAN CORPUSCULAR HGB CONC 31.8 g/dL (32.0-36.0); MEAN CORPUSCULAR VOLUME 106.3 fL (80.0-94.0); MEAN PLATELET VOLUME 9.3 fL (7.4-11.4); MONOCYTES # (AUTO) 0.6 10^3/uL (0.0-1.0); MONOCYTES % (AUTO) 10.4 %; NEUTROPHILS % (AUTO) 81.4 %; PLT - PLATELET COUNT 116 10^3/uL (130-450); RED BLOOD COUNT 3.82 10^6/uL (4.70-6.10); WHITE BLOOD COUNT 6.1 x10^3/uL (4.8-10.8)
[2019-08-30 04:37] LABS: ALBUMIN 3.9 g/dL (3.2-5.5); ALBUMIN/GLOBULIN RATIO 0.8 (1.0-2.2); BILIRUBIN,TOTAL 0.9 mg/dL (0.2-1.0); CALCIUM 10.4 mg/dL (8.5-10.3); TOTAL PROTEIN 8.6 g/dL (6.7-8.2)
--- NOTE | 2019-08-30 04:37 | XRAY Report ---
Reason: chest pain Procedure Date: 08/30/2019 Accession Number: [id number] / [id number] Procedure: XR - Chest 1 View X-Ray CPT Code: 49441 Final Report FULL RESULT: EXAM: CHEST RADIOGRAPHY EXAM DATE: 08/30/2019 04:26 AM. CLINICAL HISTORY: Chest pain. COMPARISON: CHEST 1 VIEW 06/12/2016 10:08 AM. TECHNIQUE: 1 view. FINDINGS: Lungs/Pleura: Pulmonary vascular congestion and interstitial edema. Small effusions. No pneumothorax. Mediastinum: Cardiomegaly. Other: Interval thoracic spine fusion. IMPRESSION: Cardiomegaly and congestive failure. RADIA
[2019-08-30 04:39] LABS: CREATININE 10.3 mg/dL (0.6-1.2)
[2019-08-30 07:11] VITALS: BP 151/106
== END 2019-08-30 08:10 | disposition short-term general hospital (02) ==
LOC: EDUNIT# → ED 03:50
DX: I48.91 Unspecified atrial fibrillation (principal); N28.9 Disorder of kidney and ureter, unspecified; N18.6 End stage renal disease; I50.9 Heart failure, unspecified; I13.2 Hypertensive heart and chronic kidney disease with heart failure and with stage 5 chronic kidney disease, or end stage renal disease; Z99.2 Dependence on renal dialysis
CPT/HCPCS: 36415; 71045; 80053; 82140; 83690; 83880; 85025; 93005; 94660; 96374; 99285; A9270; 80320

== ENCOUNTER 2019-10-21 13:57 | Outpatient (CLI) | payer MEDICARE, MEDICAID | END 2019-10-21 13:58 | disposition critical access hospital (66) | LOC: EMS 13:57 | PROVIDERS: ATTEND Surgery | DX: R03.1 Nonspecific low blood-pressure reading (principal); Z99.2 Dependence on renal dialysis | CPT/HCPCS: A0425; A0429 ==

== ENCOUNTER 2019-10-21 14:17 | Emergency (ER) | payer MEDICARE, MEDICAID ==
[2019-10-21] MEDS ORDERED: SODIUM CHLORIDE 0.9% 500 ML IV ONE (14:42)
[2019-10-21 14:53] LABS: BASOPHILS % (AUTO) 0.8 %; EOSINOPHILS # (AUTO) 0.2 10^3/uL (0.0-0.7); EOSINOPHILS % (AUTO) 4.1 %; HGB - HEMOGLOBIN 9.7 g/dL (14.0-18.0); LYMPHOCYTES # (AUTO) 0.7 10^3/uL (1.5-3.5); MEAN CORPUSCULAR HEMOGLOBIN 33.3 pg (27.0-31.0); MEAN CORPUSCULAR HGB CONC 31.5 g/dL (32.0-36.0); MEAN CORPUSCULAR VOLUME 105.8 fL (80.0-94.0); MEAN PLATELET VOLUME 9.1 fL (7.4-11.4); MONOCYTES # (AUTO) 0.5 10^3/uL (0.0-1.0); MONOCYTES % (AUTO) 11.7 %; NEUTROPHILS # (AUTO) 2.6 10^3/uL (1.5-6.6); NEUTROPHILS % (AUTO) 64.6 %; PLT - PLATELET COUNT 125 10^3/uL (130-450); RED BLOOD COUNT 2.91 10^6/uL (4.70-6.10); RED CELL DISTRIBUTION WIDTH 16.9 % (12.0-15.0); WHITE BLOOD COUNT 3.9 x10^3/uL (4.8-10.8)
[2019-10-21 15:01] LABS: INR 1.2 (0.8-1.2); PT - PROTHROMBIN TIME 13.9 secs (9.9-12.6)
--- NOTE | 2019-10-21 15:08 | ED Physician Documentation ---
PD HPI SYNCOPE - Stated complaint Stated Complaint: LOW BLOOD PRESSURE - Chief complaint Chief Complaint: Cardiac - History obtained from History obtained from: Patient PD PAST MEDICAL HISTORY - Past Medical History Cardiovascular: Atrial fibrillation, Hypertension Respiratory: None Neuro: None Endocrine/Autoimmune: None GI: Colon polyps, C.difficile, Pancreatitis : Dialysis, Renal insuffiency HEENT: None Psych: None Musculoskeletal: Osteoarthritis, Gout Derm: None - Past Surgical History Past Surgical History: No Ortho: Hip replacement - Present Medications Home Medications: Ambulatory Orders Medication Instructions Recorded Confirmed Aspirin [Loving Aspirin EC] 1 tab DAILY 08/30/19 08/30/19 Metoprolol Succinate [Toprol Xl] 3 tab DAILY PM 08/30/19 08/30/19 Omeprazole 1 tab DAILY 08/30/19 08/30/19 Sevelamer Carbonate [Renvela] 2 tab TID 08/30/19 08/30/19 Methoxy Peg-Epoetin Beta [Mircera] 200 mcg IJ 10/21/19 Paricalcitol [Zemplar] 3 mcg PO 10/21/19 - Allergies Allergies/Adverse Reactions: Allergies Allergy/AdvReac Type Severity Reaction Status Date / Time rosuvastatin calcium * Allergy Unknown Unknown Verified 10/21/19 14:27 [From Crestor] enoxaparin [From Lovenox] Allergy Unknown Verified 10/21/19 14:27 - Social History Does the pt smoke?: No Smoking Status: Never smoker Does the pt drink ETOH?: Yes Does the pt have substance abuse?: No - Immunizations Immunizations are current?: No Immunizations: TDAP >10years/unknown - POLST Patient has POLST: No Results - Vitals Vitals: Vital Signs - 24 hr 10/21/19 14:23 Temperature 37.1 C Heart Rate 74 Respiratory 18 Rate Blood Pressure 88/38 L O2 Saturation 97 Oxygen O2 Source Room air - Labs Labs: Laboratory Tests 10/21/19 14:32 WBC 3.9 L RBC 2.91 L Hgb 9.7 L Hct 30.8 L MCV 105.8 H MCH 33.3 H MCHC 31.5 L RDW 16.9 H Plt Count 125 L MPV 9.1 Neut # (Auto) 2.6 Lymph # (Auto) 0.7 L [place] # (Auto) 0.5 Eos # (Auto) 0.2 Baso # (Auto) 0.0 Absolute Nucleated RBC 0.00 Nucleated RBC % 0.0
[2019-10-21 15:10] LABS: ALBUMIN 3.6 g/dL (3.2-5.5); ALBUMIN/GLOBULIN RATIO 0.9 (1.0-2.2); BILIRUBIN,TOTAL 0.3 mg/dL (0.2-1.0); TOTAL PROTEIN 7.8 g/dL (6.7-8.2)
[2019-10-21 15:13] LABS: CREATININE 8.7 mg/dL (0.6-1.2)
--- NOTE | 2019-10-21 15:14 | ED Physician Documentation ---
ED Addendum - Addendum Addendum: 10/21/19 15:13 The ER nurse came and told me the patient had just left the department feeling that he was better and did not need care. I was going to talk with him but apparently he is out of the department already. His blood pressure was improved and he was feeling well so this sounds reasonable to allow him to leave at his discretion without necessarily having examined him.
[2019-10-21 15:16] VITALS: BP 96/65
== END 2019-10-21 15:10 | disposition left against medical advice (07) ==
LOC: EDUNIT# → ED 14:17
DX: Z53.21 Procedure and treatment not carried out due to patient leaving prior to being seen by health care provider (principal)
CPT/HCPCS: 36415; 80053; 83690; 85025; 85610; 99283

== ENCOUNTER 2019-11-14 08:00 | Outpatient (CLI) | payer MEDICARE, MEDICAID ==
[2019-11-14 14:15] LABS: BASOPHILS % (AUTO) 0.3 %; EOSINOPHILS # (AUTO) 0.3 10^3/uL (0.0-0.7); EOSINOPHILS % (AUTO) 8.4 %; HGB - HEMOGLOBIN 10.1 g/dL (14.0-18.0); LYMPHOCYTES # (AUTO) 0.6 10^3/uL (1.5-3.5); LYMPHOCYTES % (AUTO) 20.6 %; MEAN CORPUSCULAR HEMOGLOBIN 32.4 pg (27.0-31.0); MEAN CORPUSCULAR HGB CONC 30.6 g/dL (32.0-36.0); MEAN CORPUSCULAR VOLUME 105.8 fL (80.0-94.0); MEAN PLATELET VOLUME 9.4 fL (7.4-11.4); MONOCYTES # (AUTO) 0.3 10^3/uL (0.0-1.0); NEUTROPHILS # (AUTO) 1.8 10^3/uL (1.5-6.6); NEUTROPHILS % (AUTO) 59.4 %; PLT - PLATELET COUNT 147 10^3/uL (130-450); RED BLOOD COUNT 3.12 10^6/uL (4.70-6.10); RED CELL DISTRIBUTION WIDTH 16.9 % (12.0-15.0); WHITE BLOOD COUNT 3.1 x10^3/uL (4.8-10.8)
[2019-11-14 15:39] LABS: ALBUMIN 3.6 g/dL (3.2-5.5); ALBUMIN/GLOBULIN RATIO 0.9 (1.0-2.2); ALKALINE PHOSPHATASE 115 IU/L (42-121); ALT ALANINE AMINOTRANSFERASE 15 IU/L (10-60); AST ASPARTATE AMINOTRANSFERASE 15 IU/L (10-42); BILIRUBIN,TOTAL 0.7 mg/dL (0.2-1.0); BUN - BLOOD UREA NITROGEN 70 mg/dL (6-20); CARBON DIOXIDE - CO2 28 mmol/L (21-32); CHLORIDE 95 mmol/L (101-111); CHOL/HDL RATIO 2.8 (<5.0); CHOLESTEROL 150 mg/dL; GLUCOSE 143 mg/dL (70-100); HDL CHOLESTEROL 53 mg/dL; LDL CHOLESTEROL,CALCULATED 76 mg/dL; LDL/HDL RATIO 1.4 (<3.6); SODIUM 136 mmol/L (135-145); TOTAL PROTEIN 7.6 g/dL (6.7-8.2); VLDL CHOLESTEROL 21 mg/dL
[2019-11-14 15:40] LABS: CREATININE 11.2 mg/dL (0.6-1.2)
== END 2019-11-14 23:59 | disposition home or self-care (01) ==
LOC: LAB.WCP 08:00
PROVIDERS: ATTEND Physician Assistant Medical
DX: I48.91 Unspecified atrial fibrillation (principal); E78.5 Hyperlipidemia, unspecified; I12.0 Hypertensive chronic kidney disease with stage 5 chronic kidney disease or end stage renal disease; N18.6 End stage renal disease; Z99.2 Dependence on renal dialysis
CPT/HCPCS: 36415; 80053; 80061; 83721; 84439; 84443; 85025

== ENCOUNTER 2020-01-11 18:56 | Outpatient (CLI) | payer MEDICARE, MEDICAID | END 2020-01-11 18:57 | disposition EMS.NT | LOC: EMS 18:56 | PROVIDERS: ATTEND Surgery | DX: R11.0 Nausea (principal); R03.1 Nonspecific low blood-pressure reading ==

== ENCOUNTER 2020-06-27 09:08 | Outpatient (CLI) | payer MEDICARE, MEDICAID ==
--- NOTE | 2020-06-27 17:51 | XRAY Report ---
PROCEDURE: Foot 3 View RT INDICATIONS: R FOOT JOINT PX TECHNIQUE: 3 views of the foot were acquired. COMPARISON: None FINDINGS: Bones: No fractures or dislocations. No suspicious bony lesions. Bones are diffusely osteopenic. Torres llux valgus deformity noted. First MTP, midfoot and tibiotalar joint osteoarthritis. Large plantar ca lcaneal bone spur. Soft tissues: No tibiotalar joint effusion. Achilles tendon appears normal. IMPRESSION: 1. No fracture. No acute osseous lesion. If there persistent symptoms or continued clinical concern f or pathology, then repeat plain film radiographs (7-10 days) or advanced imaging (CT, MR, bone scan) should be considered for further evaluation. 2. Osteoarthritis. Reviewed by: Georgie Samaniego MD, PhD on 06/27/2020 5:50 PM [facility] Approved by: Georgie Samaniego MD, PhD on 06/27/2020 5:50 PM [facility] Station ID: [id number]
== END 2020-06-27 23:59 | disposition home or self-care (01) ==
LOC: DI.N 09:08
PROVIDERS: ATTEND Family Medicine
DX: M19.071 Primary osteoarthritis, right ankle and foot (principal)

== ENCOUNTER 2020-07-03 11:04 | Emergency (ER) | payer MEDICARE, MEDICAID ==
--- NOTE | 2020-07-03 11:51 | ED Physician Documentation ---
<Kenji Rodriguez - Last Filed: 07/03/20 15:45> History of Present Illness - Stated complaint Stated Complaint: RT FOOT WOUND - Chief complaint Chief Complaint: Wound PD PAST MEDICAL HISTORY - Present Medications Home Medications: Ambulatory Orders Medication Instructions Recorded Confirmed Aspirin [[place] Aspirin EC] 1 tab DAILY 08/30/19 07/03/20 Metoprolol Succinate [Toprol Xl] 3 tab DAILY PM 08/30/19 07/03/20 Omeprazole 1 tab DAILY 08/30/19 07/03/20 Sevelamer Carbonate [Renvela] 800 tab TID 08/30/19 07/03/20 - Allergies Allergies/Adverse Reactions: Allergies Allergy/AdvReac Type Severity Reaction Status Date / Time rosuvastatin calcium * Allergy Unknown Unknown Verified 07/03/20 11:15 [From Crestor] enoxaparin [From Lovenox] Allergy Unknown Verified 07/03/20 11:15 Departure - Departure Disposition: 02 Transfer Acute Care Hosp Clinical Impression: Cellulitis of right foot, Ischemic pain of right foot <Brenda Rahman - Last Filed: 07/03/20 16:23> History of Present Illness - History obtained from History obtained from: Patient, Caregiver - History of Present Illness Timing: How many days ago (10) - Additonal information Additional information: 69-year-old male who carries a history of atrial fib not on anticoagulation as well as end-stage renal disease on Thursday dialysis presents to the emergency department for evaluation of a right foot wound. Per his caregiver his right foot was accidentally rolled over by the front wheel of his wheelchair about 10 days ago. Due to pain and swelling he did present to an urgent care department. An x-ray was done that did not find any acute fractures but he was diagnosed with cellulitis. He has been taking clindamycin. However over the last week he has gotten progressively swollen pale and dusky foot. He also has evidence of dry gangrene on the right great toe. His caregiver brings him to the emergency department today though he is scheduled for dialysis at [address] [facility]. He denies any fevers, abdominal pain chest pain or shortness of breath. Review of Systems Constitutional: denies: Fever, Chills Eyes: reports: Reviewed and negative Ears: reports: Reviewed and negative Nose: reports: Reviewed and negative Throat: reports: Reviewed and negative Cardiac: reports: Pedal edema. denies: Chest pain / pressure, Palpitations Respiratory: reports: Reviewed and negative GI: denies: Abdominal Pain, Nausea, Vomiting : reports: Other (ESRD #x weekly dialysis t--thu) Musculoskeletal: reports: Extremity pain (right foot) Neurologic: reports: Reviewed and negative PD PAST MEDICAL HISTORY - Past Medical History Cardiovascular: Atrial fibrillation, Hypertension Respiratory: None Neuro: None Endocrine/Autoimmune: None GI: Colon polyps, C.difficile, Pancreatitis : Dialysis, Renal insuffiency HEENT: None Psych: None Musculoskeletal: Osteoarthritis, Gout Derm: None - Past Surgical History Past Surgical History: Yes Ortho: Hip replacement HEENT: Cataracts - Social History Does the pt smoke?: No Smoking Status: Never smoker Does the pt drink ETOH?: Yes ETOH Use: Liquor Does the pt have substance abuse?: No Substance Use and Type: CBD oil / Products - Immunizations Immunizations are current?: Yes Immunizations: TDAP >10years/unknown - POLST Patient has POLST: No PD ED PE EXPANDED - General General: Alert, No acute distress, Disheveled, poorly kept - HEENT HEENT: Atraumatic, PERRL, EOMI - Eyes Eyes: EOMI - Cardiac Cardiac: Irregularly irregular, Murmur Present, Radial strong equal, Femoral strong equal, Other (ABSENT posterior tibial and DP pulses right foot) - Respiratory Respiratory: Clear to ausultation carla. No: Distress, Labored - Abdomen Abdomen: Normal Bowel sounds. No: Tender to palpation - Extremities Extremities: Right foot (dusky, cool foot from loyd foot down. No palpable or doppler pulses present. Great toe with dry, morris medial gangrene. foot is tender to touch) - Neuro Neuro: Alert and Oriented X 3, CNII-XII intact - GCS Eye Opening: Spontaneous Motor: Obeys Commands Verbal: Oriented Total: 15 Results - Vitals Vitals: Vital Signs - 24 hr 07/03/20 07/03/20 07/03/20 11:13 11:39 13:11 Temperature 36.3 C L 36.2 C L Heart Rate 95 96 99 Respiratory 18 24 24 Rate Blood Pressure 106/55 L 112/87 H 109/78 O2 Saturation 95 100 99 07/03/20 07/03/20 14:43 15:19 Temperature Heart Rate 107 H 110 H Respiratory 15 19 Rate Blood Pressure 124/76 134/84 H O2 Saturation 100 100 Oxygen O2 Source Room air - EKG (time done) 1159 Rate: Rate (enter#) (97) Rhythm: Atrial fibrillation Intervals: Normal VT QRS: Normal Ischemia: Normal ST segments Compare to prior EKG: Old EKG unavailable Computer interpretation: Agree with computer - Labs Labs: Laboratory Tests 07/03/20 07/03/20 07/03/20 11:52 11:52 11:52 WBC 5.4 RBC 2.93 L Hgb 10.4 L Hct 32.1 L MCV 109.6 H MCH 35.5 H MCHC 32.4 RDW 15.0 Plt Count 144 MPV 9.0 Neut # (Auto) 4.4 Lymph # (Auto) 0.4 L Anderson # (Auto) 0.5 Eos # (Auto) 0.1 Baso # (Auto) 0.0 Absolute Nucleated RBC 0.00 Nucleated RBC % 0.0 Sodium 133 L Potassium 5.3 H Chloride 92 L Carbon Dioxide 26 Anion Gap 15.0 H BUN 42 H Creatinine 10.7 H* Estimated GFR (MDRD) 5 L Glucose 117 H Lactic Acid 1.5 Calcium 9.6 Total Bilirubin 0.4 AST 17 ALT 19 Alkaline Phosphatase 69 Total Protein 7.4 Albumin 3.2 Globulin 4.2 Albumin/Globulin Ratio 0.8 L Lipase 23 Nasal Adenovirus (PCR) Nasal B. parapertussis DNA (PCR) Nasal Coronavir 229E PCR Nasal Coronavir HKU1 PCR Nasal Coronavir NL63 PCR Nasal Coronavir OC43 PCR Nasal Enterovir/Rhinovir PCR Nasal Influenza B PCR Nasal Influenza A PCR Nasal Parainfluen 1 PCR Nasal Parainfluen 2 PCR Nasal Parainfluen 3 PCR Nasal Parainfluen 4 PCR Nasal RSV (PCR) Nasal B.pertussis DNA PCR Nasal C.pneumoniae (PCR) Taco Human Metapneumo PCR Nasal M.pneumoniae (PCR) Nasal SARS-CoV-2 (PCR) 07/03/20 12:45 WBC RBC Hgb Hct MCV MCH MCHC RDW Plt Count MPV Neut # (Auto) Lymph # (Auto) Anderson # (Auto) Eos # (Auto) Baso # (Auto) Absolute Nucleated RBC Nucleated RBC % Sodium Potassium Chloride Carbon Dioxide Anion Gap BUN Creatinine Estimated GFR (MDRD) Glucose Lactic Acid Calcium Total Bilirubin AST ALT Alkaline Phosphatase Total Protein Albumin Globulin Albumin/Globulin Ratio Lipase Nasal Adenovirus (PCR) NOT DETECTED Nasal B. parapertussis DNA (PCR) NOT DETECTED Nasal Coronavir 229E PCR NOT DETECTED Nasal Coronavir HKU1 PCR NOT DETECTED Nasal Coronavir NL63 PCR NOT DETECTED Nasal Coronavir OC43 PCR NOT DETECTED Nasal Enterovir/Rhinovir PCR NOT DETECTED Nasal Influenza B PCR NOT DETECTED Nasal Influenza A PCR NOT DETECTED Nasal Parainfluen 1 PCR NOT DETECTED Nasal Parainfluen 2 PCR NOT DETECTED Nasal Parainfluen 3 PCR NOT DETECTED Nasal Parainfluen 4 PCR NOT DETECTED Nasal RSV (PCR) NOT DETECTED Nasal B.pertussis DNA PCR NOT DETECTED Nasal C.pneumoniae (PCR) NOT DETECTED Taco Human Metapneumo PCR NOT DETECTED Nasal M.pneumoniae (PCR) NOT DETECTED Nasal SARS-CoV-2 (PCR) NOT DETECTED - Rads (name of study) Arterial US RLE Radiology: See rad report, Other (Technically challenging study given extensive calcification of arterial vessels. However per the tech she was able to get minimal right foot DP but no PT flow.) PD MEDICAL DECISION MAKING - ED course Complexity details: reviewed results, re-evaluated patient, considered differential, d/w patient, d/w family ED course: 69-year-old male who has a history of atrial fibrillation not on anticoagulation as well as end-stage renal disease on 3 times weekly dialysis presents the emergency department for evaluation of a cold pale and dusky foot that has no palpable or dopplerable pulses. By a reported history his right great foot was run over by the front wheel of his wheelchair about 10 days ago. An x-ray completed on the 16 of this month did not show any acute fracture or dislocation and he has been on clindamycin however over the last week the foot has gotten progressively more dusky and cool to touch from midfoot down as well is now developing an apparent dry gangrene of the right great toe. - instructional technology director reports that she was able to get a minimal amount of flow in the DP and posterior tibial vessels of the right foot however this gentleman does have an ischemic foot and does require dialysis. These services are not av ailable at [facility]. We will look for transfer starting with [facility]5: I spoke with Dr. Smith A hospitalist on-call with [facility]. In review of his chart he reports that this gentleman has severe aortic stenosis. Before he would accept the patient in transfer he requests that I get both cardiology and surgical clearance. Therefore I did speak with Dr. Klaus Miguel the on- call home health care respiratory therapist with [facility]. In review of his records he declines to accept the patient in transfer. He reports the patient has severe aortic stenosis and may need balloon valvuloplasty prior to any surgical or vascular intervention on his foot. He recommends transfer to a facility that has cardiac anesthesia available. At this time we are reaching out to [facility] in [place]. 1400: Pt is transferred to my colleague Dr. Rodriguez for further care and to complete the transfer process. please see his ED addendum note ED Impression: right foot ischemia atrial fibrillation severe aortic stenosis ESRD on 3x weekly dialysis
[2020-07-03 12:00] LABS: BASOPHILS % (AUTO) 0.6 %; EOSINOPHILS # (AUTO) 0.1 10^3/uL (0.0-0.7); EOSINOPHILS % (AUTO) 1.1 %; HGB - HEMOGLOBIN 10.4 g/dL (14.0-18.0); LYMPHOCYTES # (AUTO) 0.4 10^3/uL (1.5-3.5); LYMPHOCYTES % (AUTO) 6.4 %; MEAN CORPUSCULAR HEMOGLOBIN 35.5 pg (27.0-31.0); MEAN CORPUSCULAR HGB CONC 32.4 g/dL (32.0-36.0); MEAN CORPUSCULAR VOLUME 109.6 fL (80.0-94.0); MONOCYTES # (AUTO) 0.5 10^3/uL (0.0-1.0); MONOCYTES % (AUTO) 9.9 %; NEUTROPHILS # (AUTO) 4.4 10^3/uL (1.5-6.6); NEUTROPHILS % (AUTO) 81.4 %; PLT - PLATELET COUNT 144 10^3/uL (130-450); RED BLOOD COUNT 2.93 10^6/uL (4.70-6.10); WHITE BLOOD COUNT 5.4 x10^3/uL (4.8-10.8)
[2020-07-03 12:22] LABS: ALBUMIN 3.2 g/dL (3.2-5.5); ALBUMIN/GLOBULIN RATIO 0.8 (1.0-2.2); BILIRUBIN,TOTAL 0.4 mg/dL (0.2-1.0); CALCIUM 9.6 mg/dL (8.5-10.3); TOTAL PROTEIN 7.4 g/dL (6.7-8.2)
[2020-07-03 12:24] LABS: CREATININE 10.7 mg/dL (0.6-1.2)
[2020-07-03] MEDS ORDERED: diltiaZEM INJ 5 MG/ML VIAL IVP STA (13:02)
--- NOTE | 2020-07-03 13:07 | Ultrasound Report ---
PROCEDURE: Duplex Lwr Ext Arterial RT INDICATIONS: gangrene, lack of pulse TECHNIQUE: Color and pulse Doppler interrogation was performed of the right lower extremity arterial system, wit h image documentation. COMPARISON: None FINDINGS: Common femoral artery: 87 cm/sec, with monophasic flow. Deep femoral artery: 59 cm/sec, with monophasic flow. Proximal superficial femoral artery: 57 cm/sec, with monophasic flow. Mid superficial femoral artery: 50 cm/sec, with monophasic flow. Distal superficial femoral artery: 57 cm/sec, with monophasic flow. Popliteal artery: 38 cm/sec, with monophasic flow. Posterior tibial artery: Not detectable. Anterior tibial artery/dorsalis pedis: 31 cm/sec, with monophasic flow. Land-scale imaging description: Prominent diffuse calcification. IMPRESSION: 1. Significant diffuse calcification with monophasic low throughout the vasculature suggestive of dif fuse vascular disease. 2. Nonvisualization of posterior tibial artery flow. This could be secondary to occlusion versus nonv isualization of flow secondary to significant wall calcifications and diminutive flow. Reviewed by: Verónica Birch MD on 07/03/2020 1:05 PM PST Approved by: Verónica Birch MD on 07/03/2020 1:05 PM PST Station ID: [id number]
[2020-07-03 13:44] LABS: C. PNEUMONIAE- RESP PCR PANEL NOT DETECTED
[2020-07-03] MEDS ORDERED: HYDROmorphone 1 MG/ML CARPUJECT IVP STA ×2 (15:11→17:22)
[2020-07-03] MEDS ORDERED: ONDANSETRON 4 MG/2 ML VIAL IVP STA (15:11)
[2020-07-03 17:14] VITALS: BP 102/69
--- NOTE | 2020-07-03 22:04 | ED Physician Documentation ---
ED Addendum - Addendum Addendum: 07/03/20 22:00 69-year-old male on renal dialysis is run over his foot with a wheelchair 10 days ago this is not healed well is been treated as cellulitis as there is redness increasing and despite this the redness is worsening and today his foot appears ischemic. Dr. Jasmine the vascular surgeon at [facility] has agreed to consult on the patient and request that we admit the patient to the hospitalist service. hospitalist at [facility] has graciously acce pted the patient in transfer.
== END 2020-07-03 17:55 | disposition short-term general hospital (02) ==
LOC: ED 11:04
DX: L03.115 Cellulitis of right lower limb (principal); M79.671 Pain in right foot; I48.91 Unspecified atrial fibrillation; I12.0 Hypertensive chronic kidney disease with stage 5 chronic kidney disease or end stage renal disease; N18.6 End stage renal disease; Z99.2 Dependence on renal dialysis; Z20.828 Contact with and (suspected) exposure to other viral communicable diseases; I96 Gangrene, not elsewhere classified; I35.0 Nonrheumatic aortic (valve) stenosis
CPT/HCPCS: 36415; 80053; 83605; 83690; 85025; 87631; 93005; 93926; 96374; 96376; 99284; 99285; J1170; 0202U

== ENCOUNTER 2020-11-08 10:20 | Outpatient (CLI) | payer MEDICARE, MEDICAID | END 2020-11-08 10:21 | disposition EMS.NT | LOC: EMS 10:20 | DX: Z03.89 Encounter for observation for other suspected diseases and conditions ruled out (principal) ==

== ENCOUNTER 2020-11-18 11:39 | Outpatient (CLI) | payer MEDICARE, MEDICAID | END 2020-11-18 11:40 | disposition EMS.NT | LOC: EMS 11:39 | DX: Z03.89 Encounter for observation for other suspected diseases and conditions ruled out (principal) ==

== ENCOUNTER 2020-11-18 18:50 | Outpatient (CLI) | payer MEDICARE, MEDICAID | END 2020-11-18 18:51 | disposition short-term general hospital (02) | LOC: EMS 18:50 | DX: R06.09 Other forms of dyspnea (principal) | CPT/HCPCS: A0425; A0429 ==

== ENCOUNTER 2020-12-18 07:24 | Outpatient (CLI) | payer MEDICARE, MEDICAID | END 2020-12-18 07:25 | disposition short-term general hospital (02) | LOC: EMS 07:24 | DX: R06.00 Dyspnea, unspecified (principal) | CPT/HCPCS: A0425; A0427 ==

== ENCOUNTER 2020-12-21 18:55 | Outpatient (CLI) | payer MEDICARE, MEDICAID | END 2020-12-21 18:56 | disposition critical access hospital (66) | LOC: EMS 18:55 | DX: R51.9 Headache, unspecified (principal); R11.0 Nausea | CPT/HCPCS: A0425; A0429 ==

== ENCOUNTER 2020-12-21 19:15 | Emergency (ER) | payer MEDICARE, MEDICAID ==
--- OUTSIDE RECORDS SUMMARY | 2020-12-21 19:23 | EXTERNAL MEDICAL SUMMARY RPT | Continuity of Care Document ---
:1950 Demographics Phone Unavailable Preferred Language Tunisian Marital Status Unknown Caodaism Affiliation Unknown Race Unknown Ethnic Group Unknown Author Organization [place] Address [address] [phone] Phone Care Team Providers Name Role Phone Akil Marie Unavailable Unavailable Perry Wei Unavailable Unavailable Allergies Encounters Medications Problems date description facility [id number] Pleural effusion, not elsewhere [facility] classified [id number] End stage renal disease [facility] [id number] Pleural effusion, dyspnea [facility] [id number] Shortness of breath [facility] [id number] Encounter for orthopedic aftercare [facility] following surgical amputation [id number] Other pulmonary embolism without [facility] cor pulmonale [id number] Deep phlebothrombosis in , [facility] unspecified trimester [id number] Hagamanness of breath [facility] Procedures date description facility [id number] [facility] [id number] [facility] [id number] [facility] [id number] [facility] [id number] [facility] [id number] [facility] [id number] [facility] [id number] [facility] [id number] [facility] Results Vital Signs date measurement value source [id number] weight_standard 233.69 lb [id number] weight_metric 106 kg [id number] temperature_standard 97.9 F [id number] temperature_metric 36.61 C [id number] height_standard 72 in [id number] height_metric 182.88 cm [id number] BMI 31.6 kg/m2 [id number] respiration_rate 45 /min [id number] heart_rate 99 /min [id number] BP_systolic 129 mm[Hg] [id number] BP_diastolic 76 mm[Hg]
--- NOTE | 2020-12-21 19:34 | ED Physician Documentation ---
PD HPI HEADACHE - Stated complaint Stated Complaint: HEADACHE, NAUSEA - Chief complaint Chief Complaint: Neuro - History obtained from History obtained from: Patient, EMS - History of Present Illness Timing - onset: Today Timing - onset during: Light activity Timing - duration: Hours (he states right posterior headache for past few hours.) Timing - details: Gradual onset (Pt brought in by EMS for posterior headache and nausea. Pt seen [facility] this morning per EMS for dyspnea/effusion with thoracentesis, and went to dialysis this afternoon. EMS reports they spoke to pt's dialysis center who denied pt mentioning headache or nausea. Pt states normal dialysis session.), Waxing and waning Worst headache ever?: No: Worst headache ever? Location: Back, Right Quality: Aching, Tightness Associated symptoms: No: Fever, Stiff neck, Nausea, Weakness, Numbness Improved by: Rest (not moving neck/head, hurts for turning head to right and up mainly) Contributing factors: No: Recent illness Similar symptoms before: Has not had sx before Recently seen: Emergency Dept (seen [facility] for dyspnea and had thoracentesis, then discharged and went to dialysis as usual, with normal session there. He states developed right posterior headache/neck pain there. Continued on getting home.) Review of Systems Constitutional: denies: Fever, Chills Nose: denies: Rhinorrhea / runny nose, Congestion Throat: denies: Sore throat Respiratory: denies: Cough Neurologic: denies: Focal weakness, Numbness, Altered mental status PD PAST MEDICAL HISTORY - Past Medical History Cardiovascular: Atrial fibrillation, Hypertension Respiratory: None Neuro: Dementia Endocrine/Autoimmune: None GI: Colon polyps, C.difficile, Pancreatitis : Dialysis, Renal insuffiency HEENT: None Psych: None Musculoskeletal: Osteoarthritis, Gout Derm: None - Past Surgical History Past Surgical History: Yes Ortho: Hip replacement HEENT: Cataracts - Present Medications Home Medications: Ambulatory Orders Medication Instructions Recorded Confirmed Sevelamer Carbonate [Renvela] 800 tab TID 08/30/19 12/21/20 Atorvastatin Calcium [Lipitor] 80 mg PO HS 12/21/20 12/21/20 Metoprolol Succinate [Kapspargo 50 mg PO DAILY 12/21/20 12/21/20 Sprinkle] Tamoxifen [Nolvadex] 20 mg PO DAILY 12/21/20 12/21/20 oxyCODONE [Roxicodone] 5 mg PO BID PRN 12/21/20 12/21/20 - Allergies Allergies/Adverse Reactions: Allergies Allergy/AdvReac Type Severity Reaction Status Date / Time rosuvastatin calcium * Allergy Unknown Unknown Verified 12/21/20 19:23 [From Crestor] enoxaparin [From Lovenox] Allergy Unknown Verified 12/21/20 19:23 - Social History Does the pt smoke?: No Smoking Status: Never smoker Does the pt drink ETOH?: Yes Does the pt have substance abuse?: No - Immunizations Immunizations are current?: Yes Immunizations: TDAP >10years/unknown - POLST Patient has POLST: No PD ED PE NORMAL - Vitals Vital signs reviewed: Yes - General General: Alert and oriented X 3, No acute distress (he seems to wince when turns head to right or looks up. Has tender area right upper trapezius at occipital ridge insertion. No rash nor sores. No midline tenderness. ), Well developed/nourished - Neck Neck: Supple, no meningeal sign, No bony TTP (but is tender right upper muscle at occipital ridge insertion area. ) - Cardiac Cardiac: RRR, No murmur - Respiratory Respiratory: Clear bilaterally, Other (lungs clear. There is bandaid in place right posterior lower thoracic area. ) - Abdomen Abdomen: Soft, Non tender - Back Back: No CVA TTP, No spinal TTP - Derm Derm: Normal color, Warm and dry - Extremities Extremities: No edema, No calf tenderness / cord - Neuro Neuro: Alert and oriented X 3, instrumentation engineering technician 2-12 intact, No motor deficit, No sensory deficit, Normal speech Eye Opening: Spontaneous Motor: Obeys Commands Verbal: Oriented GCS Score: 15 Results - Vitals Vitals: Vital Signs - 24 hr 12/21/20 12/21/20 12/21/20 19:15 21:22 23:06 Temperature 36.9 C 36.4 C L Heart Rate 100 105 H 95 Respiratory 13 18 16 Rate Blood Pressure 103/69 100/61 83/67 L O2 Saturation 100 98 94 Oxygen O2 Source Room air - Rads (name of study) head CT Radiology: Prelim report reviewed (no acute abnormality. ), See rad report PD MEDICAL DECISION MAKING - ED course Complexity details: re-evaluated patient (not improved with Toradol nor with local bupivicaine at trigger point. ), considered differential (seems muscular but can get CT to be sure no ICH.), d/w patient ED course: The patient was in the ER prolonged late due to waiting for a ride. He was noted to have a low blood pressure at 1 point but he declined rechecking of it and asked that we leave him alone. I was going to give some IV fluids but he declined. He took oral fluids instead. He had had a thoracentesis yesterday morning so I did do a chest x-ray to ensure no pneumothorax or such. This appeared normal. He feels comfortable without any lightheadedness or problems. At this point will let him be as he declined further assessment. Still waiting for his caregiver to be able to pick him up in the morning. He did not seem appropriate for taxi due to his dementia. Not qualifying for ambulance. Departure - Departure Clinical Impression: Occipital headache Acute strain of neck muscle Qualifiers: Encounter type: initial encounter Qualified Code(s): S16.1XXA - Strain of muscle, fascia and tendon at neck level, initial encounter Condition: Stable Record reviewed to determine appropriate education?: Yes Follow-Up: AMILCAR ARTEAGA, MSN, ASSISTANT WAREHOUSE MANAGER [Primary Care Provider] - Comments: Your headache in the back of the head seems localized to the attachment point of a neck muscle. I presume there is some muscle inflammation at that spot. Heat and gentle stretching for the area. Tylenol periodically if needed. Continue usual medications. Your CT scan did not show any acute process in the area such as bleeding fractures or other deformity.
[2020-12-21] MEDS ORDERED: KETOROLAC 30 MG/ML VIAL IM STA (19:50)
[2020-12-21] MEDS ORDERED: BUPIVACAINE 0.5%-EPI 1:200000 PF 30 ML VIAL SUBQ ONE (19:51)
[2020-12-21] MEDS ORDERED: BUPIVACAINE 0.5% PF 10 ML VIAL SUBQ STA (19:59)
--- NOTE | 2020-12-21 21:21 | CT Report ---
PROCEDURE: HEAD WO INDICATIONS: right occipital headache today TECHNIQUE: Noncontrast 4.5 mm thick angled axial sections acquired from the foramen magnum to the vertex. For r adiation dose reduction, the following was used: automated exposure control, adjustment of mA and/or kV according to patient size. COMPARISON: None. FINDINGS: Image quality: Excellent. CSF spaces: Basal cisterns are patent. No extra-axial fluid collections. Ventricles are normal in size and shape. Brain: No midline shift. No intracranial masses or hemorrhage. Land-white matter interface is norm al. Skull and face: Calvarium and visualized facial bones are intact, without suspicious lesions. Sinuses: Visualized sinuses and mastoids are clear. IMPRESSION: Mild to moderate microvascular atherosclerotic change in the deep white matter of each h emisphere, and no acute disease is found. No mass, hemorrhage, or ventriculomegaly is seen. Reviewed by: Gallito Wright MD on 12/21/2020 9:19 PM PDT Approved by: Gallito Wright MD on 12/21/2020 9:19 PM PDT Station ID: [id number]
[2020-12-21] MEDS ORDERED: HYDROmorphone 2 MG/ML VIAL IM STA (21:29)
[2020-12-21] MEDS ORDERED: DOCUSATE SODIUM 100 MG CAPSULE PO STA (21:30)
[2020-12-22] MEDS ORDERED: SODIUM CHLORIDE 0.9% 500 ML IV STA (00:13)
[2020-12-22 06:58] VITALS: BP 124/66
--- NOTE | 2020-12-22 14:26 | XRAY Report ---
PROCEDURE: Chest 1 View X-Ray INDICATIONS: low BP; post thoracentesis earlier today TECHNIQUE: One view of the chest was acquired. COMPARISON: 08/30/2019 FINDINGS: Surgical changes and devices: Midthoracic fixation rods are seen. Lungs and pleura: No pneumothorax. Generalized interstitial prominence can be seen. Likely small carla ateral pleural effusions are present. Mediastinum: Mediastinal contours appear normal. Heart size is normal. Bones and chest wall: No suspicious bony lesions. Age-appropriate degenerative changes are seen. O verlying soft tissues appear unremarkable. IMPRESSION: No pneumothorax is seen. Mild interstitial prominence is seen, which may related to pulmonary edema, artifact, an atypical inf ection. Likely small bilateral pleural effusions. Postoperative and degenerative changes are seen. Note: No significant discrepancy from the preliminary report. Reviewed by: Santos Montano MD on 12/22/2020 1:24 PM JASMIN Approved by: Santos Montano MD on 12/22/2020 1:24 PM AKSAADIA Station ID: [id number]
== END 2020-12-22 10:50 | disposition home or self-care (01) ==
LOC: EDUNIT# → SUPCPDRO 19:15 → ED 19:15
DX: R51.9 Headache, unspecified (principal); R11.0 Nausea; S16.1XXA Strain of muscle, fascia and tendon at neck level, initial encounter; X58.XXXA Exposure to other specified factors, initial encounter; R03.1 Nonspecific low blood-pressure reading; I10 Essential (primary) hypertension; I48.91 Unspecified atrial fibrillation; N28.9 Disorder of kidney and ureter, unspecified; Z99.2 Dependence on renal dialysis
CPT/HCPCS: 20552; 70450; 71045; 96372; 99284; A9270; J1170

== ENCOUNTER 2020-12-22 10:52 | Outpatient (CLI) | payer MEDICARE, MEDICAID | END 2020-12-22 10:53 | disposition home or self-care (01) | LOC: EMS 10:52 | DX: Z74.01 Bed confinement status (principal) | CPT/HCPCS: A0425; A0428 ==

== ENCOUNTER 2020-12-28 18:45 | Outpatient (CLI) | payer MEDICARE, MEDICAID | END 2020-12-28 18:46 | disposition short-term general hospital (02) | LOC: EMS 18:45 | DX: R42 Dizziness and giddiness (principal) | CPT/HCPCS: A0425; A0429 ==

== ENCOUNTER 2021-01-03 18:06 | Outpatient (CLI) | payer MEDICARE, MEDICAID | END 2021-01-03 18:07 | disposition critical access hospital (66) | LOC: EMS 18:06 | DX: M54.2 Cervicalgia (principal) | CPT/HCPCS: A0425; A0429 ==

== ENCOUNTER 2021-01-03 18:33 | Emergency (ER) | payer MEDICARE, MEDICAID ==
[2021-01-03 20:03] VITALS: BP 119/86
[2021-01-03] MEDS ORDERED: HYDROmorphone 1 MG/ML CARPUJECT IVP STA (20:19)
--- NOTE | 2021-01-03 20:24 | ED Physician Documentation ---
History of Present Illness - Stated complaint Stated Complaint: STIFF NECK - Chief complaint Chief Complaint: General - Additonal information Additional information: 70-year-old male comes to the emergency department because he was told to by his family at home. He reports chronic neck back and joint pain states the pain is no different than normal and he does not know why he is here. He denies any falls or trauma. No fevers. No dysphonia. He does have some limited range of motion at baseline but no different than normal. He is requesting to be discharged home Review of Systems Constitutional: denies: Fever, Chills Eyes: reports: Reviewed and negative Ears: reports: Reviewed and negative Nose: reports: Rhinorrhea / runny nose, Congestion Throat: reports: Reviewed and negative Cardiac: denies: Chest pain / pressure, Palpitations Respiratory: denies: Dyspnea, Cough GI: denies: Abdominal Pain, Abdominal Swelling : denies: Dysuria Skin: denies: Rash PD PAST MEDICAL HISTORY - Past Medical History Past Medical History: Yes Cardiovascular: Atrial fibrillation, Hypertension Respiratory: None Neuro: Dementia Endocrine/Autoimmune: None GI: Colon polyps, C.difficile, Pancreatitis : Dialysis, Renal insuffiency HEENT: None Psych: None Musculoskeletal: Osteoarthritis, Gout Derm: None - Past Surgical History Past Surgical History: Yes Ortho: Hip replacement HEENT: Cataracts - Present Medications Home Medications: Ambulatory Orders Medication Instructions Recorded Confirmed Sevelamer Carbonate [Renvela] 800 tab TID 08/30/19 01/03/21 Atorvastatin Calcium [Lipitor] 80 mg PO HS 12/21/20 01/03/21 Metoprolol Succinate [Kapspargo 50 mg PO DAILY 12/21/20 01/03/21 Sprinkle] Tamoxifen [Nolvadex] 20 mg PO DAILY 12/21/20 01/03/21 oxyCODONE [Roxicodone] 5 mg PO BID PRN 12/21/20 01/03/21 - Allergies Allergies/Adverse Reactions: Allergies Allergy/AdvReac Type Severity Reaction Status Date / Time rosuvastatin calcium * Allergy Unknown Unknown Verified 01/03/21 18:45 [From Crestor] enoxaparin [From Lovenox] Allergy Unknown Verified 01/03/21 18:45 - Social History Does the pt smoke?: No Smoking Status: Never smoker Does the pt drink ETOH?: Yes Does the pt have substance abuse?: No - Immunizations Immunizations are current?: Yes Immunizations: TDAP >10years/unknown - POLST Patient has POLST: No PD ED PE EXPANDED - General General: Alert, No acute distress, Other (obese sitting in wheel chair) - Neck Neck: Soft tissue TTP (right lateral paraspinous tenderness to palpation that radiates to the trapexius). No: Bony TTP - Cardiac Cardiac: Regular Rate, Murmur Present, Radial strong equal, Cap refill < 2 sec - Respiratory Respiratory: Clear to ausultation carla. No: Distress, Labored - Abdomen Abdomen: Normal Bowel sounds. No: Tender to palpation - Derm Derm: Normal color, Warm and dry - Neuro Neuro: Alert and Oriented X 3, CNII-XII intact - GCS Eye Opening: Spontaneous Motor: Obeys Commands Verbal: Oriented Total: 15 Results - Vitals Vitals: Vital Signs - 24 hr 01/03/21 01/03/21 18:45 20:02 Temperature 36.5 C 37.1 C Heart Rate 98 78 Respiratory 16 12 Rate Blood Pressure 113/53 L 119/86 H O2 Saturation 95 94 Oxygen O2 Source Room air PD MEDICAL DECISION MAKING - ED course Complexity details: reviewed results, re-evaluated patient, d/w patient ED course: 70-year-old male presents the emergency department for evaluation of right-sided neck pain and mild headache. He reports that he always has neck pain and headache and this is no different than normal. He does not desire to be in the emergency department. On exam there are no fevers. He does have some limited range of motion of neck but he reports that this is again his baseline. Previous CT imaging is shown degenerative disc disease in the neck. On exam there is mild soft tissue tenderness without swelling or erythema. Stoma will be given 1 mg of Dilaudid and discharged home no emergent medical condition appears to exist today. He does have prescriptions for oxycodone at home and I have encouraged him to use this medication as prescribed. Return precautions were discussed for suddenly severe or different headaches slurred speech facial droop focal weakness in the arms or legs. Departure - Departure Disposition: 01 Home, Self Care Clinical Impression: Neck pain Condition: Stable Record reviewed to determine appropriate education?: Yes Instructions: ED Neck Pain No Trauma Comments: Mao longo are seen in the ER today for right-sided neck pain. He has not had any recent falls or trauma and your exam is rather reassuring. No x-rays or CT images were taken today. I do suspect mild muscle sprain. The previous imaging of your neck has shown degenerative disc disease. Due to this you have arthritis in the neck and will typically have chronic pain. You were given an injection of Dilaudid here in the emergency department. You do have prescriptions for oxycodone that you can fill and take as needed for severe pain only. Return to the ER if you develop fevers, have inability to turn your neck, uncontrolled vomiting, slurred speech, facial droop or sudden weakness in your arms
== END 2021-01-03 21:10 | disposition home or self-care (01) ==
LOC: ED 18:33
DX: M54.2 Cervicalgia (principal); I48.91 Unspecified atrial fibrillation; I10 Essential (primary) hypertension; N28.9 Disorder of kidney and ureter, unspecified; E66.9 Obesity, unspecified
CPT/HCPCS: 99282; 99283

== ENCOUNTER 2021-01-03 22:50 | Outpatient (CLI) | payer MEDICARE, MEDICAID | END 2021-01-03 22:51 | disposition home or self-care (01) | LOC: EMS 22:50 | PROVIDERS: ATTEND Emergency Medicine | DX: Z76.89 Persons encountering health services in other specified circumstances (principal) | CPT/HCPCS: A0425; A0428 ==

== ENCOUNTER 2021-01-04 07:56 | Outpatient (CLI) | payer MEDICARE, MEDICAID | END 2021-01-04 07:57 | disposition EMS.NT | LOC: EMS 07:56 | DX: Z03.89 Encounter for observation for other suspected diseases and conditions ruled out (principal) ==

== ENCOUNTER 2021-01-09 02:27 | Outpatient (CLI) | payer MEDICARE, MEDICAID | END 2021-01-09 02:28 | disposition EMS.NT | LOC: EMS 02:27 | DX: R51.9 Headache, unspecified (principal) ==

== ENCOUNTER 2021-01-16 11:47 | Outpatient (CLI) | payer MEDICARE, MEDICAID | END 2021-01-16 11:48 | disposition short-term general hospital (02) | LOC: EMS 11:47 | DX: R19.7 Diarrhea, unspecified (principal) | CPT/HCPCS: A0425; A0429 ==

== ENCOUNTER 2021-01-16 19:38 | Outpatient (CLI) | payer MEDICARE, MEDICAID | END 2021-01-16 19:39 | disposition short-term general hospital (02) | LOC: EMS 19:38 | DX: K92.1 Melena (principal) | CPT/HCPCS: A0425; A0429 ==

== ENCOUNTER 2021-02-25 17:29 | Outpatient (CLI) | payer MEDICARE, MEDICAID | END 2021-02-25 17:30 | disposition short-term general hospital (02) | LOC: EMS 17:29 | DX: R53.81 Other malaise (principal) | CPT/HCPCS: A0425; A0429 ==

== ENCOUNTER 2021-03-28 10:59 | Outpatient (CLI) | payer MEDICARE, MEDICAID | END 2021-03-28 11:00 | disposition short-term general hospital (02) | LOC: EMS 10:59 | DX: K62.5 Hemorrhage of anus and rectum (principal) | CPT/HCPCS: A0425; A0429 ==

== ENCOUNTER → 2022-07-11 | Outpatient (CLI) | payer MEDICARE, MEDICAID | END | disposition short-term general hospital (02) | LOC: EMS 17:46 | DX: R56.9 Unspecified convulsions (principal); Z99.2 Dependence on renal dialysis | CPT/HCPCS: A0425; A0429 ==

== ENCOUNTER 2023-01-31 08:39 | Outpatient (CLI) | payer MEDICARE, MEDICAID | END 2023-01-31 08:40 | disposition short-term general hospital (02) | LOC: EMS 08:39 | DX: S80.211A Abrasion, right knee, initial encounter (principal); S50.811A Abrasion of right forearm, initial encounter; W05.0XXA Fall from non-moving wheelchair, initial encounter; Y92.89 Other specified places as the place of occurrence of the external cause; Z89.511 Acquired absence of right leg below knee | CPT/HCPCS: A0425; A0429 ==